=== PATIENT | male | born 1940 | race Caucasian/White ===

== ENCOUNTER 2016-10-17 10:19 | Inpatient (IN) ==
[2016-10-17] MEDS ORDERED: Aspirin 81 MG TAB.CHEW PO ONE (10:27)
[2016-10-17 10:39] LABS: Basophils % 0.6 %; Eosinophils # 0.2 K/mcL (0.0-0.6); Eosinophils % 2.9 %; Hematocrit 41.3 % (37.5-50.1); Hemoglobin 13.5 g/dL (12.9-16.9); Immature Granulocytes % 0.4 % (0-4); Lymphocytes # 1.5 K/mcL (0.6-4.6); Lymphocytes % 22.1 %; Mean Corpuscular HGB Conc 32.7 g/dL (31.6-35.5); Mean Corpuscular Hemoglobin 30.8 pg (28.0-33.3); Mean Corpuscular Volume 94.3 fL (83.0-100.0); Mean Platelet Volume 10.1 fL (9.4-12.4); Monocytes # 0.6 K/mcL (0.0-1.3); Neutrophils # 4.6 K/mcL (1.6-8.9); Platelet Count 161 K/mcL (140-400); Red Blood Count 4.38 M/mcL (4.19-5.50)
[2016-10-17 10:46] LABS: INR 1.4
[2016-10-17] MEDS: Nitroglycerin 25 MG/250 ML INFUS..BTL IVC SCH (10:49)
--- NOTE | 2016-10-17 10:49 | Emergency Department Note ---
Disposition Clinical Impression: Peripheral edema Atrial flutter Qualifiers: Atrial flutter type: typical Qualified Code(s): I48.3 - Typical atrial flutter Dyspnea Qualifiers: Dyspnea type: dyspnea on exertion Qualified Code(s): R06.09 - Other forms of dyspnea Pulmonary edema Qualifiers: Chronicity: acute Qualified Code(s): J81.0 - Acute pulmonary edema Disposition: Admitted As Inpatient Condition: Fair Forms: ED Satisfaction Letter Time of Disposition: 11:36 Chest Pain HPI - General Chief Complaint: ED Chest Pain Stated Complaint: C/P Time Seen by Provider: 10/17/16 10:26 Source: patient Mode of arrival: ambulatory Limitations: no limitations Vital Signs Reviewed: Yes Nursing Notes Reviewed: Yes - History of Present Illness HPI Narrative: Patient presents to emergency room with complaint of chest pain for 3-4 weeks. Patient has history of stable angina. He uses nitroglycerin home. Presents today because now he is having much more difficulty with ambulation and conversational dyspnea. was concerned and wanted him evaluated. Denies fevers chills nausea vomiting diarrhea denies headache vision changes. Main complaint at presentation has persistent chest pain shortness of breath Pt complaint: chest pain Onset (ago): day(s) Duration: constant Onset: during rest Pain Location: substernal Severity: moderate Severity scale (1-10): 8 Quality: aching, heaviness, similar to prior [place] Pain Radiation: none Improves with: nitroglycerin Worsens with: exertion, inspiration Associated symptoms: Reports: dyspnea, palpitations, cough, leg swelling Treatments prior to arrival chest pain: nitroglycerin, oxygen - Related Data Home Medications Medication Instructions Recorded Confirmed Atorvastatin Calcium [Lipitor] 80 mg PO HS 11/30/15 11/30/15 Clopidogrel [Plavix] 75 mg PO DAILY 11/30/15 11/30/15 Diltiazem HCl [Diltiazem 24Hr Cd] 240 mg PO DAILY 11/30/15 11/30/15 Ezetimibe [Zetia] 10 mg PO HS 11/30/15 11/30/15 Oxybutynin [Ditropan] 5 mg PO DAILY 11/30/15 11/30/15 Roflumilast [Daliresp] 500 mcg PO DAILY 11/30/15 11/30/15 Allergies Allergy/AdvReac Type Severity Reaction Status Date / Time No Known Allergies Allergy Verified 11/30/15 10:32 All systems ED: reviewed and negative except as stated. Constitutional: Denies: fever, chills Cardiovascular: Reports: chest pain, palpitations, dyspnea on exertion, orthopnea, edema Respiratory: Reports: cough, dyspnea, sputum production. Denies: wheezes, hemoptysis, stridor Gastrointestinal: Denies: nausea, vomiting, diarrhea, constipation Genitourinary: Denies: dysuria, frequency, hematuria Musculoskeletal: Denies: back pain, neck pain Chest Pain PMH - Past Medical History Medical history: Reports: arthritis, cancer, COPD, coronary artery disease, hyperlipidemia, hypertension Surgical history: Reports: coronary bypass (CABG) Psychiatric history: Reports: no psych history - Social History Smoking Status: Former smoker Alcohol use: Reports: none Drug use: Reports: none Physical Exam - General Limitations: no limitations General appearance: alert - Neck Neck exam: Present: normal inspection, full ROM - Chest Chest inspection: Present: normal inspection, symmetric chest wall rise. Absent : tenderness - Respiratory Respiratory exam: Present: respiratory distress, accessory muscle use. Absent: normal lung sounds bilaterally, wheezes, stridor - Cardiovascular Cardiovascular exam: Present: normal rhythm, tachycardia, normal heart sounds. Absent: irregular rhythm - Abdominal Exam Abdominal exam: Present: soft, Non-Tender, normal bowel sounds. Absent: tenderness, distention, guarding, rebound, rigidity, Lama's sign, Rovsing's sign, tenderness at McBurney's Point - Extremities Exam Extremities exam: Present: normal inspection, full ROM, pedal edema (Bilateral pitting edema to the knee). Absent: tenderness - Back Exam Back exam: Present: normal inspection, full ROM. Absent: tenderness, CVA tenderness (R), CVA tenderness (L) - Neurological Exam Neurological exam: Present: alert, oriented X3, CN II-XII intact, normal gait - Skin Skin exam: Present: warm, dry, intact, normal color Course Course Narrative: Patient seen and examined the time of arrival to the emergency room by personal vehicle. 76-year-old male presents today for 3-4 weeks worth of chest discomfort pain and increase shortness of breath. Has a history of cardiac related disease and multiple stenting's in the past. The most recent was one year ago when he catheterization performed. He has had persistently worsening exertional dyspnea to the point today where he is actually have conversational dyspnea. He does use oxygen at night at home for chronic lung related issues. Of note he is been finding or seeing bilateral lower extremity swelling in the legs. Patient denies any other changes in medication or recent trauma no recent illnesses. Currently denying fevers chills nausea vomiting diarrhea headache or vision change. Main complaint on presentation his chest discomfort and shortness of breath. Physical exam shows a well-appearing 76-year-old male that does appear to be in some respiratory distress. Vital signs are reviewed and he was hypoxic at 90% on room air on arrival after walking into the ER. He was to Make and 26 respirations per minute range. Heart rate is been stable at 110-120 but is concerning secondary to his presentation symptoms. EKG was taken in triage and does show worries read as a flutter even though it does look like sinus rhythm at this time. Patient was taking nitroglycerin tablets at home with resolution of his chest discomfort and some of the breathing related symptoms. Lungs on physical exam are significantly diminished in the left lower lobe of the lung. Right-sided lungs appear to aerate appropriately. Heart rate is tachycardic with possible mild systolic murmur. Abdomen is soft nontender nondistended no pulsatile regions or lesions. No hernias noted no guarding no rigidity. Patient moves all 4 extremities with purpose he has bilateral pitting edema at +[address] up to the knee. Based on symptoms history and presentation patient is concerning for cardiac related source, pulmonary edema, congestive heart failure, pulmonary emboli. He is currently on Plavix. EKG troponin chest x-ray BiPAP Lasix CBC chemistry Bnp. We will continue to monitor here in the emergency room. Initial immediate intervention will be provided including Lasix to treat what appears to be pulmonary congestion and cardiac source. Patient does not take aspirin and has been taking his Lasix. Disposition pending this workup and treatment course. - Reevaluation(s) Reevaluation #1: Patient found to have elevated troponin at 0.14. Chest x-ray reviewed showing left-sided what appears to be pulmonary edema effusion and right-sided pulmonary edema. Mediastinum was compared to a chest x-ray and 2012 and appears to be normal presentation in width. Patient is on Plavix currently. Will discuss with the retort setter on-call for the recommendations of either starting anticoagulation and treatment of what appears to be sinus tachycardia/ A. fib flutter. Patient is concerning for fluid overload. Nitroglycerin drip started at 5 mcg/h blood pressure is been stable and his chest pain is gone and noticed a slight pressure. BiPAP to be applied as needed. Pulse ox is maintained at 96% on 1 L of oxygen. First dose of IV Lasix given. Otherwise no other acute findings on this evaluation. Treatment course to be completed. Cardiology consult pending. Cardizem drip and heparin be started. Chest pain is down to 1 at this time after nitro drip. We will control her heart rate at this time with the Cardizem purchasing internship off the nitroglycerin as a Cardizem drip is started. We will then adjust for blood pressure at that time. Patient is resting in the bed at this time heart rate is still 120 but his breathing and presentation appear to be more stable at this time. Admission process to be completed at this point CT angios of the chest is pending Time: 11:25 Reevaluation #2: CT angiogram of the chest confirmed bilateral pleural effusions with no signs of pulmonary emboli. Mild atelectasis noted. Symptoms appear to be consistent with congestive heart failure pulmonary edema. Symptoms of in getting better with treatment here in the emergency room. Hospital space at this time for admission process to be completed Hospitalist Dr. weaver and I reviewed the patient's presentation symptoms cardiac consultation as well as the medical interventions performed on in the emergency room. They currently have no other recommendations at this time. They are happy to treat the patient in the hospital. BiPAP was placed here in the emergency room secondary to increased work of breathing after the patient was moved from the bed to a wheelchair while going over to CT. This is most likely secondary to the pleural effusion movement. Patient otherwise had stable vital signs. Tolerating BiPAP without any issue. He will be admitted to the hospital for definitive management of what appears to be pulmonary edema , congestive heart failure, fluid overload causing atrial flutter and an elevated troponin. Patient is otherwise stable resting in the bed at this time Time: 12:40 - Consultations Consultation #1: dr. Hood and I reviewed the pt presentation and symptoms. recommended that we start heparin and cardizem if applicable and they will see in consult. aware of the elevated trop and ekg issues. Vital Signs Temperature 98 F 10/17/16 10:20 Pulse Rate 97 10/17/16 10:20 Respiratory Rate 20 10/17/16 10:20 Blood Pressure 128/70 10/17/16 10:20 O2 Sat by Pulse Oximetry 98 10/17/16 10:20 Temperature 98 F 10/17/16 10:20 Pulse Rate 97 10/17/16 10:20 Respiratory Rate 20 10/17/16 10:20 Blood Pressure 128/70 10/17/16 10:20 O2 Sat by Pulse Oximetry 98 10/17/16 10:20 Oxygen Delivery Oxygen Delivery Room Air Chest Pain - MDM Narrative Medical decision making narrative: Chest pain, pulmonary edema, hypoxia, tachycardia, elevated troponin, congestive heart failure - Medical Records Medical records reviewed: Yes I reviewed the patient's medical records. - Lab Data Lab results reviewed: Yes I reviewed the patient's lab results. Result diagrams: 10/17/16 10:31 Lab Results 10/17/16 Range/Units 10:31 WBC 7.0 (4.3-11.1) K/mcL RBC 4.38 (4.19-5.50) M/mcL Hgb 13.5 (12.9-16.9) g/dL Hct 41.3 (37.5-50.1) % MCV 94.3 (83.0-100.0) fL MCH 30.8 (28.0-33.3) pg MCHC 32.7 (31.6-35.5) g/dL RDW 13.0 (11.5-14.5) % Plt Count 161 (140-400) K/mcL MPV 10.1 (9.4-12.4) fL Immature Gran % 0.4 (0-4) % Seg Neutrophils % 66.0 % Lymphocytes % 22.1 % Monocytes % 8.0 % Eosinophils % 2.9 % Basophils % 0.6 % Neutrophils # 4.6 (1.6-8.9) K/mcL Lymphocytes # 1.5 (0.6-4.6) K/mcL Monocytes # 0.6 (0.0-1.3) K/mcL Eosinophils # 0.2 (0.0-0.6) K/mcL Basophils # 0.0 (0.0-0.2) K/mcL - Radiology Data Radiology results reviewed: Yes I reviewed the patient's radiology results. Chest x-ray reviewed by myself confirmed by the radiologist. Mediastinum appears to be stable. Left side of the lung appears to have pulmonary effusion/ edema. Right side has cephalization consistent with pulmonary edema. - EKG Data EKG attestation: Yes I reviewed and interpreted this EKG. EKG shows normal: sinus rhythm, axis, intervals, QRS complexes, ST-T waves Rate: tachycardia [place]/QRS: normal When compared to previous EKG there are: changes noted Interpretation: other Heart Score - Score History: Moderately Suspicious EKG: Non Specific repolarisation Disturbance Age: Greater than 65 Risk Factors: Equal/Greater than 3 risk factor or history of atherosclerotic disease Troponin: Greater than 3x normal limit HEART Score Total: 8 Critical Care Time Critical Care Time: Yes Total Critical Care Time: 35 Attestation: Independent of medical management patient disposition. Patient was placed on nitro drip secondary to cardiac symptoms and history of flash pulmonary edema. Consultations with the cardiology hospitalist
[2016-10-17 10:51] LABS: BUN/Creatinine Ratio 19 (6-26); Blood Urea Nitrogen 19 mg/dL (8-26); Calcium 9.5 mg/dL (8.6-10.8); Carbon Dioxide 21 mEq/L (19-29); Chloride 111 mEq/L (98-109); Glucose 106 mg/dL (70-99); Osmolality,Calculated 293 (280-300); Potassium 4.3 mEq/L (3.5-4.5); Sodium 140 mEq/L (136-145); eGFR For African Americans > 60 (> 60); eGFR For Non-African Americans > 60 (> 60)
[2016-10-17] MEDS ORDERED: Furosemide 80 MG in 0.9 % Sodium Chloride 50 ML IVPB ONE (10:57)
[2016-10-17] MEDS ORDERED: *HR* Heparin 5,000 UNIT/ML VIAL IVP PRN ×2 (11:32)
[2016-10-17] MEDS ORDERED: *HR* Heparin 5,000 UNIT/ML VIAL IVP ONE (11:32)
[2016-10-17] MEDS: Heparin 25,000 UNIT/500 ML D5W 25,000 UNIT/500 ML MLS IVC SCH (12:45)
[2016-10-17] MEDS ORDERED: *HR* Morphine 2 MG/ML SYRINGE IVP PRN (15:12)
[2016-10-17] MEDS ORDERED: Naloxone 0.4 MG/ML INJ IVP PRN (15:12)
[2016-10-17] MEDS ORDERED: *HR* HYDROcodone/Acet 5/325 mg TABLET PO PRN (15:12)
[2016-10-17] MEDS ORDERED: Acetaminophen 325 MG TABLET PO PRN (15:12)
[2016-10-17] MEDS ORDERED: Heparin 25,000 UNIT/500 ML D5W 25,000 UNIT/500 ML MLS IVC SCH (15:30)
[2016-10-17] MEDS ORDERED: Nitroglycerin 0.4 MG TAB.SUBL SL PRN (15:34)
--- NOTE | 2016-10-17 15:40 | Internal Med History&Physical ---
<Tom Rivas - Last Filed: 10/17/16 17:48> Date of Encounter: 10/17/16 Time of Encounter: 14:30 Assessment and Plan (1) Acute on chronic respiratory failure Current visit: Yes Status: Acute Assess: Patient presents with new onset acute on chronic respiratory failure. Plan: Initiate BiPap in ED with continuation of therapy after admission Continuous SpO2 monitoring Xopenex IH ordered every 6 Continue patient's Qvar Monitor patient and vital signs Falls precautions [id number] only Bed rest with bedside commode with assist Qualifiers: Respiratory failure complication: hypoxia Qualified Code(s): J96.21 - Acute and chronic respiratory failure with hypoxia (2) Acute systolic congestive heart failure Current visit: Yes Status: Acute Assess: Patient presents with acute systolic congestive heart failure. Patient has history of CAD and CABG. Vision currently has bilateral pedal edema which is nonpitting. Plan: IVP Lasix 80 mg administered in ED Continue IVP Lasix 40 mg BID Continuous cardiac telemetry Continue BiPap Fluid restriction diet of 1.5 L daily (3) Atrial flutter with rapid ventricular response Current visit: Yes Status: Acute Assess: Patient presents with new onset of atrial flutter/tachycardia with rapid ventricular response. Plan: Heparin drip initiated in ED. Will continue as inpatient Cardizem drip initiated in ED. Will continue as inpatient Aspirin 324 mg initiated knee-deep Cardiology consult ordered and placed in ED Continuous cardiac telemetry Continue patient's Plavix EV echocardiogram ordered Troponins trended 2 Monitor patient and vitals (4) COPD (chronic obstructive pulmonary disease) Current visit: Yes Status: Chronic Assess: Patient presents with acute exacerbation of chronic obstructive pulmonary disease. Plan: Continue BiPap Xopenex IH ordered Q6 Continuous SPO2 monitoring Continue patient's home Qvar Qualifiers: COPD type: COPD with acute exacerbation Qualified Code(s): J44.1 - Chronic obstructive pulmonary disease with (acute) exacerbation (5) HLD (hyperlipidemia) Current visit: Yes Status: Chronic Assess: Patient presents with history of chronic hyperlipidemia. Plan: Lipid panel ordered Consider adding Lipitor based on the panel results Qualifiers: Hyperlipidemia type: unspecified Qualified Code(s): E78.5 - Hyperlipidemia , unspecified (6) DVT prophylaxis Current visit: Yes Status: Acute Assess: Patient placed on DVT prophylaxis due to admission protocol as well as bedrest status and current atrial flutter diagnosis. Plan: Continue Heparin drip Internal Medicine - H&P: HPI Chief complaint: SOB/Chest pressure Admitted From: Emergency Dept Plans for Post Hospital Care: Home History of present illness: Mr. Velazquez is a 76 year old male presents from the ED with chief complaint of SOB and chest pressure for the past 3-4 weeks which has become progressively worse. Patient uses nitroglycerin for stable angina at home which he reports helps. He states that he is now SOB with and without exertion and can only take several steps. He states that his chest discomfort is more pressure than pain and does not radiate. Upon arrival at the ED, patient was found to be experiencing a new onset of atrial flutter. He denies recent illness, fever, chills, nausea, vomiting, diarrhea, headache, generalized weakness, or vision changes. Patient's HR in ED was in the 120's. Cardizem drip and Heparin drips initiated in the ED with 80 mg IVP of Lasix for bilateral edema in lower extremities. 25 mg nitroglycerin drip was also started in ED as well as administration of 324 mg aspirin. Patient has history of bladder cancer which he reports is in remission with his last maintenance dose administered on . Patient also has history of COPD, CAD, hyperlipidemia, hypertension, coronary bypass in 1987 (triple) and placement of 5 stents. Patient is high risk for cardiac decline based on current atrial flutter and history of CAD and will replace his inpatient continuation of Cardizem drip, heparin drip, cardiology consult, continuous cardiac telemetry, supplemental O2 via BiPAP, troponin trending 2, IVP Lasix 40 mg twice a day, monitoring of I&O, EV echocardiogram, ABGs, follow-up APTT and INR, as well as fluid restriction diet of 1.5 L daily. Patient to be monitored closely. Time spent with patient greater than 40 minutes. Past Med Surg Social Fam HX - Past Medical History Source: patient Medical history: arthritis, cancer, COPD, coronary artery disease, hyperlipidemia, hypertension Psychiatric history: no psych history - Past Surgical History Surgical History: coronary bypass (CABG), orthopedic, other (Back/disc surgery) - Social History Smoking Status: Former smoker Packs per day: 1 PPD - reports quitting 28 years ago Smokeless Tobacco Status: No Alcohol use: none Drug use: none Occupational status: retired Current living situation: Home, With Family Activity Level: Independent ambulation Recent Out of Country Travel Within the Last 8 Weeks: No Exposure or Possible Exposure to Illness During Travel: No - Family History Father Race: Family Member Ethnicity: Non- Living Status: Age at : 89 Cause of : Complications from broken hip Mother Race: Family Member Ethnicity: Non- Living Status: Age at : 91 Cause of : "Old age" Brother Race: Family Member Ethnicity: Non- Living Status: Age at : 47 Cause of : Cancer - Type unknown Hx Family Cardiac Disorders: Yes Sister Race: Family Member Ethnicity: Non- Living Status: Still Living Hx Family Medical Disorders: No Internal Medicine - H&P: Meds Atorvastatin Calcium [Lipitor] 80 mg PO HS 11/30/15 [History] Clopidogrel [Plavix] 75 mg PO DAILY 11/30/15 [History] Diltiazem HCl [Diltiazem 24Hr Cd] 240 mg PO DAILY 11/30/15 [History] Ezetimibe [Zetia] 10 mg PO HS 11/30/15 [History] Oxybutynin [Ditropan] 5 mg PO DAILY 11/30/15 [History] Roflumilast [Daliresp] 500 mcg PO DAILY 11/30/15 [History] Ascorbate Calcium [Vitamin C] 500 mg PO DAILY 10/17/16 [History] Beclomethasone Diprop 80mcg [Qvar 80 mcg] 2 puff IH BID 10/17/16 [History] Multivitamin [Multi-Day Vitamins] 1 tab PO DAILY 10/17/16 [History] Nitroglycerin [Nitrostat] 0.4 mg SL AD PRN 10/17/16 [History] Oxygen 2 l NS HS 10/17/16 [History] Umeclidinium Brm/Vilanterol Tr [Anoro Ellipta 62.5-25 Mcg INH] 1 puff IH DAILY 10/17/16 [History] Vitamin A 10,000 unit PO DAILY 10/17/16 [History] Vitamin E 100 unit PO DAILY 10/17/16 [History] Allergies No Known Allergies Allergy (Verified 11/30/15 10:32) All Systems PM: A 10-system review of systems was performed and is negative for pertinent findings except as documented above in the HPI. - Constitutional Constitutional: no chills, no fever(s), no night sweats - EENT Eyes: no change in vision, no discharge, no pain, no photophobia Ears: no ear discharge, no ear pain, no tinnitus Nose, mouth and throat: no dysphagia, no nasal discharge, no neck pain, no sore throat - Breasts Breasts: as per HPI - Cardiovascular Cardiovascular ROS IM: as per HPI, chest pain (Describes chest discomfort as pressure), dyspnea, dyspnea on exertion, edema (Bilateral nonpitting), irregular heart rhythm - Respiratory Respiratory: as per HPI, dyspnea, dyspnea on exertion, wheezing - Gastrointestinal Gastrointestinal: no abdominal pain, no diarrhea, no hematemesis, no hematochezia, no melena, no nausea, no vomiting - Genitourinary Genitourinary ROS male: as per HPI, urinary urgency (Due to Lasix) - Musculoskeletal Musculoskeletal ROS IM: no numbness, no tingling - Integumentary Integumentary IM: no rash, no unusual bruising - Neurological Neurological ROS: no confusion, no convulsions, no focal weakness, no numbness, no tingling, no tremor(s) - Psychiatric Psychiatric: as per HPI - Endocrine Endocrine IM: as per HPI - Hematologic/Lymphatic Hematologic/Lymphatic: no easy bruising - Allergic/Immunologic Allergic/Immunologic: as per HPI - Constitutional Vitals: Temp Pulse Resp BP Pulse Ox 98 F 124 30 122/93 98 10/17/16 10:20 10/17/16 14:00 10/17/16 14:40 10/17/16 14:40 10/17/16 14:00 General appearance: Present: cooperative, A&O X 3, pleasant, obese, severe distress (Respiratory distress requiring BiPap), answers questions appropriately - Head Head exam: Present: atraumatic, normocephalic - Eye Eye exam: Present: PERRL, conjuntiva pink, sclera anicteric Pupils: Present: PERRL - ENT ENT exam: Present: normal exam, normal external ear exam - Neck Neck exam general surgery: Present: normal inspection, supple, trachea midline. Absent: lymphadenopathy - Respiratory Respiratory exam: Present: decreased breath sounds, respiratory distress, wheezes (Bilaterally all lobes) - Cardiovascular Cardiovascular exam: Present: irregular rhythm, tachycardia - GI/Abdominal GI/Abdominal exam: Present: normal bowel sounds, soft, no peritoneal signs. Absent: distended, tenderness - Rectal Rectal exam: Present: deferred - Additional comments: exam deferred. - Extremities Exam Extremities exam: Present: pedal edema (Non-pitting bilaterally), warm, radial pulses palpable and symetrical. Absent: calf tenderness, cyanotic - Back Exam Back exam: Present: normal inspection - Neurological Exam Neurological exam: Present: CN II-XII intact, oriented X3, no focal deficits. Absent: pronater drift, facial droop, speech deficit - Psychiatric Psychiatric exam: Present: normal affect, normal mood - Skin Skin exam: Present: dry, intact Internal Med - H&P Results - Labs CBC & Chem 7: 10/17/16 17:14 10/17/16 10:31 - EKG Data Prior EKG available for review: yes When compared to previous EKG: there are significant changes EKG comments: 10/17/16 16:00 EKG dated 09/24/13 shows sinus bradycardia with possible inferior infarction, age undetermined. T-wave changes in lateral leads. Appearances provide additional evidence of myocardial ischemia. EKG dated 10/17/16 shows atrial flutter/tachycardia with rapid ventricular response, possible anterior myocardial infarction (probably old). - Diagnostic Studies Chest x-ray Additional comments: Impressions Chest X-Ray 10/17/16 10:27 IMPRESSION: Findings are most suggestive of mild congestive heart failure. D/ / Jimena Cassidy MD / Jimena Cassidy MD Interpreting Provider: Jimena Cassidy MD CT scan - chest Additional comments: Impressions Chest CTA 10/17/16 10:38 IMPRESSION: 1. Examination is negative for acute pulmonary embolism 2. Bilateral pleural effusions, right greater than left with bibasilar atelectatic changes. D/ / Yordan Giraldo MD / Yordan Giraldo MD Interpreting Provider: Yordan Giraldo MD <Rene Cobian - Last Filed: 10/17/16 18:49> Date of Encounter: 10/17/16 Time of Encounter: 17:15 Internal Medicine - H&P: HPI History of present illness: Mr. Velazquez is a 76 year old male All Systems PM: A 10-system review of systems was performed and is negative for pertinent findings except as documented above in the HPI. - Constitutional Vitals: Temp Pulse Resp BP Pulse Ox 97.8 F 122 18 123/93 96 10/17/16 15:49 10/17/16 16:45 10/17/16 16:55 10/17/16 16:45 10/17/16 16:55 Internal Med - H&P Results - Labs CBC & Chem 7: 10/17/16 17:14 10/17/16 10:31 Labs: Short CBC 10/17/16 Range/Units 17:14 WBC 7.5 (4.3-11.1) K/mcL Hgb 13.6 (12.9-16.9) g/dL Hct 40.8 (37.5-50.1) % Plt Count 168 (140-400) K/mcL Cardiac Enzymes 10/17/16 Range/Units 17:14 Troponin I 0.15 H* (0-0.03) ng/mL - Attending Attestation I examined this patient and my medical decision-making was reviewed with the nurse practitioner. I agree with the documented history of present illness, review of systems, past medical, surgical social and family histories and examination findings, disposition and treatment plan as described above except to any changes set forth below. 76-year-old male patient with history of coronary artery disease status post CABG, COPD, hyperlipidemia, hypertension presented to the ER with complaints of shortness of breath and chest pressure. His symptoms have been going on for the past 3-4 weeks but progressively getting worse. He has a history of chronic stable angina for which he uses nitroglycerin as needed. He was also having palpitations on presentation. In the year noted to be in a flutter with rapid ventricular response. He was started on Cardizem and also on heparin for anticoagulation. On examination, patient is tachycardic and regular rhythm, S1 and S2 are normal. Respiratory exam shows bilateral end expiratory wheezing. On initial presentation to the ER, patient was very hypoxic and required BiPAP. This is now improved after he received IV Lasix in the ER. Acute on chronic respiratory failure with hypoxia: Due to acute CHF with underlying COPD. Will treat with IV Lasix and O2 supplementation. Monitor vital signs closely. High risk for complications. Acute systolic congestive heart failure: We will treat with IV Lasix. Check 2- D echocardiogram. Cardiology has been consulted. We will follow recommendations. Atrial flutter: Continue Cardizem drip and heparin drip. Cardiology recommendations. COPD exacerbation: Patient is also wheezing bilaterally and hypoxic. We will treat with Xopenex nebs. O2 supplementation. Continue Qvar. IV steroids. Chest pain with mild troponin elevation: Likely related to hypoxia and demand ischemia. Trend troponins. 2-D echocardiogram. Cardiology consult
[2016-10-17] MEDS: Levalbuterol Neb 1.25 MG/3 ML IH SCH ×2 (16:55→20:30)
[2016-10-17 17:23] LABS: Hematocrit 40.8 % (37.5-50.1); Hemoglobin 13.6 g/dL (12.9-16.9); Mean Corpuscular HGB Conc 33.3 g/dL (31.6-35.5); Mean Corpuscular Hemoglobin 31.2 pg (28.0-33.3); Mean Corpuscular Volume 93.6 fL (83.0-100.0); Mean Platelet Volume 10.2 fL (9.4-12.4); Platelet Count 168 K/mcL (140-400); Red Blood Count 4.36 M/mcL (4.19-5.50)
[2016-10-17 17:37] LABS: INR 1.4; Prothrombin Time 14.8 Seconds (9.4-12.1)
[2016-10-17 17:41] LABS: Activated Partial Thrombo Time 72.6 Seconds (26.0-36.0)
[2016-10-17] MEDS: Beclomethasone 80mcg MDI IH SCH (20:30)
[2016-10-18 04:26] LABS: Basophils % 0.6 %; Eosinophils # 0.2 K/mcL (0.0-0.6); Eosinophils % 3.6 %; Hematocrit 38.9 % (37.5-50.1); Immature Granulocytes % 0.6 % (0-4); Lymphocytes # 1.6 K/mcL (0.6-4.6); Lymphocytes % 24.5 %; Mean Corpuscular HGB Conc 33.4 g/dL (31.6-35.5); Mean Corpuscular Hemoglobin 31.5 pg (28.0-33.3); Mean Corpuscular Volume 94.2 fL (83.0-100.0); Mean Platelet Volume 10.8 fL (9.4-12.4); Monocytes # 0.6 K/mcL (0.0-1.3); Monocytes % 9.2 %; Neutrophils # 4.1 K/mcL (1.6-8.9); Platelet Count 164 K/mcL (140-400); Red Blood Count 4.13 M/mcL (4.19-5.50); Segmented Neutrophils % 61.5 %
[2016-10-18] MEDS: Levalbuterol Neb 1.25 MG/3 ML IH SCH ×2 (04:26→09:28)
[2016-10-18 04:55] LABS: Alanine Aminotransferase 41 Units/L (0-55); Albumin 3.4 g/dL (3.5-5.0); Albumin/Globulin Ratio 1.1 (1.1-2.2); Alkaline Phosphatase 87 Units/L (38-126); Aspartate Amino Transferase 32 Units/L (5-34); BUN/Creatinine Ratio 17 (6-26); Bilirubin,Total 1.4 mg/dL (0.2-1.2); Blood Urea Nitrogen 16 mg/dL (8-26); Calcium 8.9 mg/dL (8.6-10.8); Carbon Dioxide 22 mEq/L (19-29); Chloride 108 mEq/L (98-109); Cholesterol 131 mg/dL (< 200); Glucose 98 mg/dL (70-99); HDL Cholesterol 43 mg/dL (40-59); LDL Cholesterol,Calculated 77 mg/dL (0-99); Magnesium 1.7 mg/dL (1.6-2.6); Osmolality,Calculated 293 (280-300); Potassium 3.5 mEq/L (3.5-4.5); Sodium 141 mEq/L (136-145); Total Protein 6.4 g/dL (6.0-8.3); Triglycerides 55 mg/dL (< 150); eGFR For African Americans > 60 (> 60); eGFR For Non-African Americans > 60 (> 60)
[2016-10-18] MEDS: Multivit/Ca/Min/Fe/FA 1 TAB TABLET PO SCH (07:58)
[2016-10-18] MEDS: Pantoprazole 40 MG VIAL IVP SCH (07:58)
[2016-10-18] MEDS: Ascorbic Acid 500 MG TABLET PO SCH (07:58)
[2016-10-18] MEDS ORDERED: VITAMIN E 100 UNITS PO SCH (09:00)
[2016-10-18] MEDS ORDERED: VITAMIN A 10000 UNIT PO SCH (09:00)
[2016-10-18] MEDS: Beclomethasone 80mcg MDI IH SCH ×2 (09:28→20:57)
[2016-10-18] MEDS: Nitroglycerin 25 MG/250 ML INFUS..BTL IVC SCH (11:52)
--- NOTE | 2016-10-18 11:54 | Electrocardiograph Report ---
[place] [id number] Test Date: 2016-10-17 Pat Name: Hansel Velazquez Department: 103 Room: 2N15 Gender: M [employer] Supervisor: : [id number] Requested By: Abimael Hernandez Order Number: [id number] Reading MD: Bebo Barton MD Measurements Intervals [place] Rate: 122 P: OK: 0 QRS: -16 QRSD: 116 T: 120 QT: 309 QTc: 381 Interpretive Statements ATRIAL FLUTTER/TACHYCARDIA WITH RAPID VENTRICULAR RESPONSE Poor R wave progression Electronically Signed On 10-18-2016 11:52:42 EDT by Bebo Barton MD
--- NOTE | 2016-10-18 13:28 | Cardiology Consult Note ---
<Karla Chowdhury - Last Filed: 10/18/16 14:50> Date of Encounter: 10/18/16 Time of Encounter: 08:00 Assessment and Plan (1) Atrial flutter with rapid ventricular response Current Visit: Yes Status: Acute Per cardiology: -New onset atrial flutter with RVR. -Was on cardizem drip. -ECG with a.flutter, HR 122. -Telemetry reviewed with average HR previous 12 hours noted to be 98, atrial flutter. -On heparin drip. -Echo 10/18/16 with LVEF 35-40%, mildly dilated left atrium, restricted motion of posterior mitral valve leaflet, severe mitral regurgitation, mid inferior, basal inferior, mid anterior lateral, basal anterior lateral, mid inferior lateral, and basal inferior lateral brooks hypokinetic. -[id number] score 5 (age, HTN, CHF, vascular disease). Currently on heparin drip. Due to severe MR, patient will need coumadin for meterman anticoagulation. I spoke at length with patient and regarding increased risk of stroke if not on anticoagulation and need for coumadin due to valvular heart disease. Patient agreeable for coumadin. -Cardizem was stopped due to cardiomyopathy. -Beta cynthia was started. -Will start coumadin. Will stop heparin. -Will continue to monitor. (2) Acute systolic congestive heart failure, NYHA class 2 Current Visit: Yes Status: Acute Per cardiology: -Echo as above with LVEF 35-40%. -Previous echo with EF 55%. -Pitting edema noted. -On lasix IV BID. -Net negative 754ml this admission. -Chest CT with bilateral pleural effusions right greater than left. -Of note, current weight 211.9 pounds, per office records weight 05/2016 225 pounds. -BNP 381 -Agree with strict i/os, daily weights, and fluid restriction. -CHF education given to patient and family. -Will continue to monitor. -Agree with continuation of lasix. (3) Severe mitral regurgitation Current Visit: Yes Status: Acute Per cardiology: -Severe MR per echocardiogram. -Patient with increased shortness of breath and edema. -Will continue to monitor. (4) CAD (coronary artery disease) Current Visit: Yes Status: Chronic Per cardiology: -Known CAD with CABG x3 1997. -[facility] 8/3/16 with 100% stenosis proximal LAD, 100% OM1, 100% proximal RCA, collaterals from LAD, CARD to LAD, SVG to OM occluded, and SVG to PDA occluded. Cath films reviewed with , who states lesions are not ammendable to PCI. -Patient has chronic chest pain. -Reports increased chest pain with atrial flutter with RVR. -Denies current chest pain. -ON plavix, statin, beta cynthia. Patient refuses to take ASA due to increased bruising. -ECG with no ischemic changes. -Echo as above. -Will continue to monitor. Qualifiers: Coronary Disease-Associated Artery/Lesion type: unspecified vessel or lesion type [place] vs. transplanted heart: unspecified whether [place] or transplanted heart Associated angina: without angina Qualified Code(s): I25.10 - Atherosclerotic heart disease of [place] coronary artery without angina pectoris (5) Elevated troponin Current Visit: Yes Status: Acute Per cardiology: -ELevated troponin 0.14, 0.15, 0.15. -Troponins flat and adynamic in the setting of atrial flutter with RVR. -Denies current chest pain. -Echo as above. -Known CAD, not ammednable to PCI. -Do not suspect NSTEMI, suspect demand ischemia related to atrial flutter with RVR. No cardiac rehab warranted at this time. (6) Cardiomyopathy Current Visit: Yes Status: Acute Per cardiology: -New cardiomyopathy with LVEF 35-40%, previous 55%. -Echo as above. -On lasix. -beta cynthia and wilton inhibitor started. -recommend repeating echoacrdiogram in 3 months. Qualifiers: Cardiomyopathy type: unspecified Qualified Code(s): I42.9 - Cardiomyopathy , unspecified Discussion w patient/family: The assessment and plan as outlined above was discussed with the patient and/or family members who expressed understanding and agreement. All questions were answered. Thank you for involving us in the care of your patient. Please call with any questions. Discussed and reviewed with . History of Present Illness Consult date: 10/17/16 Requesting physician: Abimael Hernandez Consult reason: atrial flutter Chief complaint: Chest pain/shortness of breath History of present illness: Mr. Velazquez is a 76 year old male with a relevant past medical history of HTN, hyperlipidemia, CAD s/p CABG x3 1997, COPD, skin CA, bladder cancer. Patient states over the past couple of weeks he has had worsening shortness of breath and chest pain. Patient has chronic angina, but states this pain was worse. Patient was admitted to [facility] and noted to be in atrial flutter with RVR. Patient declines history of atrial fibrillation/flutter. Cardiology has been consulted. Patient denies current chest pain, palpitations, or fluttering. Patient denies bleeding or blood loss. Reports has now finished chemotherapy for bladder CA. Past Med Surg Social Fam HX - Past Medical History Attestation: Yes The following information was validated with the patient. Source: patient, old records reviewed, obtained from family Medical history: arthritis, cancer, COPD, coronary artery disease, hyperlipidemia, hypertension Psychiatric history: no psych history - Past Surgical History Surgical History: coronary bypass (CABG), orthopedic, other (Back/disc surgery) - Social History Smoking Status: Former smoker Packs per day: 1 PPD - reports quitting 28 years ago Smokeless Tobacco Status: No Alcohol use: none Drug use: none - Family History Father Race: Family Member Ethnicity: Non- Living Status: Age at : 89 Cause of : Complications from broken hip Mother Race: Family Member Ethnicity: Non- Living Status: Age at : 91 Cause of : "Old age" Brother Race: Family Member Ethnicity: Non- Living Status: Age at : 47 Cause of : Cancer - Type unknown Hx Family Cardiac Disorders: Yes Sister Race: Family Member Ethnicity: Non- Living Status: Still Living Hx Family Medical Disorders: No Medications and Allergies Atorvastatin Calcium [Lipitor] 80 mg PO HS 11/30/15 [History] Clopidogrel [Plavix] 75 mg PO DAILY 11/30/15 [History] Diltiazem HCl [Diltiazem 24Hr Cd] 240 mg PO DAILY 11/30/15 [History] Ezetimibe [Zetia] 10 mg PO HS 11/30/15 [History] Oxybutynin [Ditropan] 5 mg PO DAILY 11/30/15 [History] Roflumilast [Daliresp] 500 mcg PO DAILY 11/30/15 [History] Ascorbate Calcium [Vitamin C] 500 mg PO DAILY 10/17/16 [History] Beclomethasone Diprop 80mcg [Qvar 80 mcg] 2 puff IH BID 10/17/16 [History] Multivitamin [Multi-Day Vitamins] 1 tab PO DAILY 10/17/16 [History] Nitroglycerin [Nitrostat] 0.4 mg SL AD PRN 10/17/16 [History] Oxygen 2 l NS HS 10/17/16 [History] Umeclidinium Brm/Vilanterol Tr [Anoro Ellipta 62.5-25 Mcg INH] 1 puff IH DAILY 10/17/16 [History] Vitamin A 10,000 unit PO DAILY 10/17/16 [History] Vitamin E 100 unit PO DAILY 10/17/16 [History] Allergies No Known Allergies Allergy (Verified 11/30/15 10:32) All Systems Review: A 10-system review of systems was performed and is negative for pertinent findings except as documented above in the HPI. - Cardiovascular Cardiovascular: as per HPI, chest pain at rest, dyspnea at rest, dyspnea on exertion Physical Examination Vital Signs, Last 4 Hours Temp Pulse Resp BP Pulse Ox 10/18/16 11:42 102 10/18/16 11:28 97.8 F 114 16 103/72 94 10/18/16 09:31 16 95 General: Conversant, No Apparent Distress HEENT: Atraumatic, Normocephaly, Mucus Membranes Moist Neck: No JVD, Normal carotid pulses Cardiac: Normal S1 and S2, Other (Irregularly, irregular. Systolic murmur noted. ) Lungs: Normal Breath Sounds, No Wheeze, Rales, Rhonchi Neuro: Alert and responsive, No focal deficits noted Abdomen: Soft, Non-Tender Skin: No rashes noted on visualized skin Musculoskeletal: No Chest Wall Tenderness Extremities: No Clubbing, No Cyanosis, Normal Pulses, Other (2+ pitting edema to left lower extremity. 1+ pitting edema to right lower extremity. ) Results 10/18/16 03:24 10/18/16 03:24 Lab Results 10/17/16 10/17/16 10/17/16 17:14 17:14 17:14 WBC 7.5 Hgb 13.6 Hct 40.8 Plt Count 168 INR 1.4 APTT 72.6 H D Sodium Potassium Chloride Carbon Dioxide BUN Creatinine Glucose Calcium Magnesium Total Bilirubin AST ALT Alkaline Phosphatase Troponin I B-Natriuretic Peptide 381 H TSH 06/10/17/16 10/17/16 17:14 21:51 21:51 WBC Hgb Hct Plt Count INR APTT 57.4 H Sodium Potassium Chloride Carbon Dioxide BUN Creatinine Glucose Calcium Magnesium Total Bilirubin AST ALT Alkaline Phosphatase Troponin I 0.15 H* 0.15 H* B-Natriuretic Peptide TSH Impressions Chest CTA 10/17/16 10:38 IMPRESSION: 1. Examination is negative for acute pulmonary embolism 2. Bilateral pleural effusions, right greater than left with bibasilar atelectatic changes. D/ / Yordan Giraldo MD / Yordan Giraldo MD Interpreting Provider: Yordan Giraldo MD Active Medications Acetaminophen (Tylenol) 650 mg PO Q6HR PRN PRN Reason: Mild Pain (1-3) Stop: 04/18/17 15:13 Acetaminophen/Hydrocodone Bitart ([place] 5-325 Mg) 1 tab PO Q4HR PRN PRN Reason: Moderate Pain (4-6) Stop: 04/18/17 15:13 Ascorbic Acid (Vitamin C) 500 mg PO DAILY [facility] Stop: 04/19/17 09:01 Last Admin: 10/18/16 07:58 Dose: 500 mg Atorvastatin Calcium (Lipitor) 80 mg PO HS ROSITA Stop: 04/18/17 21:01 Last Admin: 10/17/16 21:03 Dose: 80 mg Beclomethasone Dipropionate (Qvar 80 Mcg) 2 puff IH BID ROSITA PRN Reason: Protocol Stop: 04/18/17 21:01 Last Admin: 10/18/16 09:28 Dose: 2 puff Clopidogrel Bisulfate (Plavix) 75 mg PO DAILY [facility] Stop: 04/19/17 09:01 Last Admin: 10/18/16 07:58 Dose: 75 mg Furosemide (Lasix) 40 mg IVP BID [facility] Stop: 04/19/17 21:01 Heparin Sodium (Porcine) (Heparin) 4,000 unit IVP Q6HR PRN PRN Reason: SEE COMMENTS Stop: 04/18/17 11:33 Heparin Sodium (Porcine) (Heparin) 2,000 unit IVP Q6H PRN PRN Reason: SEE COMMENTS Stop: 04/18/17 11:33 Last Admin: 10/18/16 06:46 Dose: 2,000 unit Nitroglycerin (Nitroglycerin) 25 mg in 250 mls @ 3 mls/hr IVC .Q24H ROSITA PRN Reason: 5 MCG/MIN Stop: 04/18/17 10:46 Last Admin: 10/18/16 11:52 Dose: Not Given Heparin Sodium/Dextrose (Heparin 25,000 Unit/500 Ml D5w) 25,000 unit in 500 mls @ 19.051 mls/hr IVC .Q24H ROSITA; 10 UNIT/KG/HR PRN Reason: Protocol Stop: 04/18/17 11:46 Last Titration: 10/18/16 12:04 Dose: 9.97 unit/kg/hr, 19 mls/hr Levalbuterol HCl (Xopenex) 1.25 mg IH [id number] [facility] Stop: 04/18/17 16:01 Last Admin: 10/18/16 09:28 Dose: 1.25 mg Lisinopril (Zestril) 2.5 mg PO DAILY ROSITA PRN Reason: Protocol Stop: 04/19/17 12:01 Last Admin: 10/18/16 12:04 Dose: 2.5 mg Metoprolol Tartrate (Lopressor) 25 mg PO BID [facility] Stop: 04/19/17 12:01 Last Admin: 10/18/16 12:04 Dose: 25 mg Morphine Sulfate (Morphine Sulfate) 2 mg IVP Q4HR PRN PRN Reason: Severe Pain (7-10) Stop: 04/18/17 15:13 Multivitamins/Calcium (Thera M Plus) 1 tab PO DAILY [facility] Stop: 04/19/17 09:01 Last Admin: 10/18/16 07:58 Dose: 1 tab Naloxone HCl (Narcan) 0.4 mg IVP Q2MIN PRN PRN Reason: Opioid Reversal Stop: 04/18/17 15:13 Nitroglycerin (Nitroglycerin) 0.4 mg SL AD PRN PRN Reason: Chest Pain Stop: 04/18/17 15:35 Oxybutynin Chloride (Ditropan) 5 mg PO DAILY ROSITA PRN Reason: Protocol Stop: 04/19/17 09:01 Last Admin: 10/18/16 07:58 Dose: 5 mg Pantoprazole Sodium (Protonix) 40 mg IVP DAILY [facility] Stop: 04/19/17 09:01 Last Admin: 10/18/16 07:58 Dose: 40 mg Pharmacy Profile Note (Patient Taking Own Medication) 1 each PO HS ROSITA Stop: 04/18/17 21:01 Last Admin: 10/17/16 20:50 Dose: Not Given Pharmacy Profile Note (Patient Taking Own Medication) 1 each PO DAILY [facility] Stop: 04/19/17 09:01 Last Admin: 10/18/16 07:58 Dose: Not Given Pharmacy Profile Note (Patient Taking Own Medication) 1 each PO DAILY [facility] Stop: 04/19/17 09:01 Last Admin: 10/18/16 07:58 Dose: Not Given Laboratory Tests 10/17/16 10/17/16 10/17/16 10:31 10:31 17:14 Hgb Potassium Creatinine Magnesium Troponin I 0.14 H* 0.15 H* B-Natriuretic Peptide 381 H TSH 10/17/16 10/18/16 10/18/16 21:51 03:24 03:24 Hgb 13.0 Potassium 3.5 Creatinine 0.92 Magnesium 1.7 Troponin I 0.15 H* B-Natriuretic Peptide TSH 10/18/16 11:25 Hgb Potassium Creatinine Magnesium Troponin I B-Natriuretic Peptide TSH 1.360 - Imaging and Cardiology Chest Xray: report reviewed Echo: report reviewed Cardiac cath: report reviewed - EKG Interpretation EKG results cardiology: personally reviewed (ECG with atrial flutter, HR 122.), other (Telemetry reviewed with average HR 98, atrial flutter. Longest pasue 1.3 seconds. PVCs, couplets, and 5 triplet PVCS noted.) Consult Discharge Plan - Plan Referrals: Lisa Quiñones CNP [Advanced Practice Nurse] - 10/26/16 9:00 am <Anastasiya Hood - Last Filed: 10/18/16 15:51> Date of Encounter: 10/18/16 Assessment and Plan Discussion w patient/family: The assessment and plan as outlined above was discussed with the patient and/or family members who expressed understanding and agreement. All questions were answered. Thank you for involving us in the care of your patient. Please call with any questions. History of Present Illness History of present illness: Mr. Velazquez is a 76 year old male All Systems Review: A 10-system review of systems was performed and is negative for pertinent findings except as documented above in the HPI. Physical Examination Vital Signs, Last 4 Hours Resp Pulse Ox 10/18/16 14:20 16 94 Results 10/18/16 03:24 10/18/16 03:24 Lab Results 10/17/16 10/17/16 10/17/16 17:14 17:14 17:14 WBC 7.5 Hgb 13.6 Hct 40.8 Plt Count 168 INR 1.4 APTT 72.6 H D Sodium Potassium Chloride Carbon Dioxide BUN Creatinine Glucose Calcium Magnesium Total Bilirubin AST ALT Alkaline Phosphatase Troponin I B-Natriuretic Peptide 381 H TSH 10/17/16 10/17/16 10/17/16 17:14 21:51 21:51 WBC Hgb Hct Plt Count INR APTT 57.4 H Sodium Potassium Chloride Carbon Dioxide BUN Creatinine Glucose Calcium Magnesium Total Bilirubin AST ALT Alkaline Phosphatase Troponin I 0.15 H* 0.15 H* B-Natriuretic Peptide TSH 10/18/16 10/18/16 10/18/16 03:24 03:24 03:25 WBC 6.6 Hgb 13.0 Hct 38.9 Plt Count 164 INR APTT 52.3 H Sodium 141 Potassium 3.5 Chloride 108 Carbon Dioxide 22 BUN 16 Creatinine 0.92 Glucose 98 Calcium 8.9 Magnesium 1.7 Total Bilirubin 1.4 H AST 32 ALT 41 Alkaline Phosphatase 87 Troponin I B-Natriuretic Peptide TSH 10/18/16 10/18/16 11:25 11:25 WBC Hgb Hct Plt Count INR APTT 97.7 H D Sodium Potassium Chloride Carbon Dioxide BUN Creatinine Glucose Calcium Magnesium Total Bilirubin AST ALT Alkaline Phosphatase Troponin I B-Natriuretic Peptide TSH 1.360 - Attending Attestation I examined this patient and my medical decision-making was reviewed with the WAISTBAND SETTER LOCKSTITCH/PA/Advanced Practice Nurse/Resident Physician. I agree with the documented findings, disposition and treatment plan. Presented with new atrial flutter and reduced EF, 35-40% (prior 55%) and severe MR with regional variations. He has known CAD, recent cath in November 2015 demonstrating significant CAD. Films were reviewed with Interventionalist - no areas that would be amenable to PCI. Recommend rate control of AFL and follow up as outpatient with Dr. Ishan Aj (EP). We discussed consideration for anticoagulation with coumadin. The R/B/A were discussed with patient and . Patient expressed understanding and agreement. Ok to continue IV lasix for diuresis, continue daily weights and fluid restriction.
[2016-10-18] MEDS ORDERED: Ipratropium/Albuterol Neb 3 ML IH ONE (14:08)
[2016-10-18] MEDS ORDERED: Furosemide 20 MG/2 ML VIAL IVP ONE (14:10)
[2016-10-18] MEDS: Heparin 25,000 UNIT/500 ML D5W 25,000 UNIT/500 ML MLS IVC SCH (14:19)
--- NOTE | 2016-10-18 14:39 | Internal Med Progress Note ---
Date of Encounter: 10/18/16 Time of Encounter: 11:15 - Assessment and plan (1) Acute systolic congestive heart failure, NYHA class 2 Current Visit: Yes Status: Acute Assessment and plan: Echo 10/18/16 with LVEF 35-40%, mildly dilated left atrium, restricted motion of posterior mitral valve leaflet, severe mitral regurgitation, mid inferior, basal inferior, mid anterior lateral, basal anterior lateral, mid inferior lateral, and basal inferior lateral brooks hypokinetic. Noted to have worsening orthopenea Will continue Lasix 40mg IV BID and give additional Lasix 20mg IV closely monitor I/OS, daily weights, fluid restriction diet cardiology input appreciated (2) Atrial flutter with rapid ventricular response Current Visit: Yes Status: Acute Assessment and plan: Cardizem d/qasim given cardiomyopathy BB started continue anticoagulation with Heparin bridging with Coumadin Pharmacy to dose coumadin cardiology consultation appreciated Lopressor 5mg IV q6h prn HR>100 with sBP>110 (3) COPD (chronic obstructive pulmonary disease) Current Visit: Yes Status: Chronic Assessment and plan: will continue home nebulizer treatments not in acute exacerbation Qualifiers: COPD type: COPD with acute exacerbation Qualified Code(s): J44.1 - Chronic obstructive pulmonary disease with (acute) exacerbation (4) HLD (hyperlipidemia) Current Visit: Yes Status: Chronic Assessment and plan: continue home meds Qualifiers: Hyperlipidemia type: unspecified Qualified Code(s): E78.5 - Hyperlipidemia , unspecified (5) Severe mitral regurgitation Current Visit: Yes Status: Acute (6) CAD (coronary artery disease) Current Visit: Yes Status: Chronic Assessment and plan: no signs of angina present at this time will continue home meds Qualifiers: Coronary Disease-Associated Artery/Lesion type: unspecified vessel or lesion type [place] vs. transplanted heart: unspecified whether [place] or transplanted heart Associated angina: without angina Qualified Code(s): I25.10 - Atherosclerotic heart disease of [place] coronary artery without angina pectoris (7) DVT prophylaxis Current Visit: Yes Status: Acute Assessment and plan: Heparin gtt - Subjective Interval history: Patient seen and examined with present at bedside. Noted to have persistent orthopnea. Denies any chest pain at this time. - Constitutional Vitals: Temp Pulse Resp BP Pulse Ox 97.8 F 102 16 103/72 94 10/18/16 11:28 10/18/16 11:42 10/18/16 14:20 10/18/16 11:28 10/18/16 14:20 General appearance: Present: cooperative, mild distress (respiratory distress), A&O X 3, pleasant, obese, answers questions appropriately - Head Head exam: Present: atraumatic, normocephalic - Eye Eye exam: Present: normal appearance, conjuntiva pink, sclera anicteric - Respiratory Respiratory exam: Present: respiratory distress (mild respiratory distress, decreased inspiratory effort, mild bibasilar crackles ). Absent: wheezes - Cardiovascular Cardiovascular exam: Present: irregular rhythm, +S1, +S2, tachycardia - GI/Abdominal GI/Abdominal exam: Present: normal bowel sounds, soft, no peritoneal signs. Absent: distended, tenderness - Extremities Exam Extremities exam: Present: pedal edema (bilateral pitting edema ), warm, radial pulses palpable and symetrical. Absent: calf tenderness - Neurological Exam Neurological exam: Present: alert, oriented X3 - Psychiatric Psychiatric exam: Present: normal affect, normal mood Internal Medicine: Result - Labs CBC & Chem 7: 10/18/16 03:24 10/18/16 03:24 Labs: Short CBC 10/17/16 10/18/16 Range/Units 17:14 03:24 WBC 7.5 6.6 (4.3-11.1) K/mcL Hgb 13.6 13.0 (12.9-16.9) g/dL Hct 40.8 38.9 (37.5-50.1) % Plt Count 168 164 (140-400) K/mcL Neutrophils # 4.1 (1.6-8.9) K/mcL BMP 10/18/16 03:24 Sodium 141 Potassium 3.5 Chloride 108 Carbon Dioxide 22 BUN 16 Creatinine 0.92 Glucose 98 Calcium 8.9 Cardiac Enzymes 10/17/16 10/17/16 Range/Units 17:14 21:51 Troponin I 0.15 H* 0.15 H* (0-0.03) ng/mL Liver Function 10/18/16 Range/Units 03:24 Total Bilirubin 1.4 H (0.2-1.2) mg/dL AST 32 (5-34) Units/L ALT 41 (0-55) Units/L Alkaline Phosphatase 87 (38-126) Units/L Albumin 3.4 L (3.5-5.0) g/dL - ABG Interpretation ABG results: PT/INR, D-dimer PT 14.8 Seconds (9.4-12.1) H 10/17/16 17:14 - VTE Documentation of Mechanical Device: Graduated compression elastic hosiery Consult Discharge Plan - Plan Referrals: Lisa Quiñones CNP [Advanced Practice Nurse] - 10/26/16 9:00 am
[2016-10-18] MEDS ORDERED: Levalbuterol Neb 1.25 MG/3 ML IH PRN (14:52)
[2016-10-18] MEDS ORDERED: *HR* Metoprolol 5 MG/5 ML VIAL IVP PRN (14:54)
[2016-10-18] MEDS: Levalbuterol Neb 1.25 MG/3 ML AER SCH ×2 (16:34→20:57)
[2016-10-18] MEDS: Ipratropium Neb 0.5 MG NEBULIZER AER SCH ×3 (16:34→23:59)
[2016-10-18] MEDS: *HR* Warfarin 5 MG TABLET PO SCH (16:55)
[2016-10-18] MEDS ORDERED: Warfarin perPT PO PRN (18:00)
[2016-10-18] MEDS: Furosemide 40 MG/4 ML VIAL IVP SCH (21:58)
[2016-10-19] MEDS: Levalbuterol Neb 1.25 MG/3 ML AER SCH ×7 (04:24→19:52)
[2016-10-19] MEDS: Ipratropium Neb 0.5 MG NEBULIZER AER SCH ×5 (04:24→19:52)
[2016-10-19 06:10] LABS: Basophils % 0.6 %; Eosinophils # 0.3 K/mcL (0.0-0.6); Eosinophils % 4.5 %; Hematocrit 37.1 % (37.5-50.1); Hemoglobin 12.4 g/dL (12.9-16.9); Immature Granulocytes % 0.3 % (0-4); Lymphocytes # 1.7 K/mcL (0.6-4.6); Lymphocytes % 25.3 %; Mean Corpuscular HGB Conc 33.4 g/dL (31.6-35.5); Mean Corpuscular Hemoglobin 31.3 pg (28.0-33.3); Mean Corpuscular Volume 93.7 fL (83.0-100.0); Mean Platelet Volume 10.4 fL (9.4-12.4); Monocytes # 0.7 K/mcL (0.0-1.3); Monocytes % 10.2 %; Neutrophils # 3.9 K/mcL (1.6-8.9); Platelet Count 163 K/mcL (140-400); Red Blood Count 3.96 M/mcL (4.19-5.50); Segmented Neutrophils % 59.1 %
[2016-10-19 06:22] LABS: INR 1.3; Prothrombin Time 14.2 Seconds (9.4-12.1)
[2016-10-19 06:24] LABS: BUN/Creatinine Ratio 21 (6-26); Blood Urea Nitrogen 18 mg/dL (8-26); Calcium 8.6 mg/dL (8.6-10.8); Carbon Dioxide 24 mEq/L (19-29); Chloride 108 mEq/L (98-109); Glucose 103 mg/dL (70-99); Magnesium 1.7 mg/dL (1.6-2.6); Osmolality,Calculated 292 (280-300); Phosphorous 3.5 mg/dL (2.3-4.7); Potassium 3.4 mEq/L (3.5-4.5); Sodium 140 mEq/L (136-145); eGFR For African Americans > 60 (> 60); eGFR For Non-African Americans > 60 (> 60)
[2016-10-19] MEDS: Multivit/Ca/Min/Fe/FA 1 TAB TABLET PO SCH (07:21)
[2016-10-19] MEDS: Ascorbic Acid 500 MG TABLET PO SCH (07:21)
[2016-10-19] MEDS: Pantoprazole 40 MG VIAL IVP SCH (07:21)
[2016-10-19] MEDS: Beclomethasone 80mcg MDI IH SCH ×2 (07:49→19:53)
[2016-10-19] MEDS: Nitroglycerin 25 MG/250 ML INFUS..BTL IVC SCH (09:03)
[2016-10-19] MEDS: Furosemide 40 MG/4 ML VIAL IVP SCH ×2 (09:03→22:25)
[2016-10-19] MEDS ORDERED: *HR* Digoxin 0.5 MG/2 ML AMPUL IVP ONE (11:23)
[2016-10-19] MEDS ORDERED: *HR* Digoxin 0.5 MG/2 ML AMPUL IVP SCH (11:30)
--- NOTE | 2016-10-19 11:53 | Internal Med Progress Note ---
Date of Encounter: 10/19/16 Time of Encounter: 09:15 - Assessment and plan (1) Acute systolic congestive heart failure, NYHA class 2 Current Visit: Yes Status: Acute Assessment and plan: Echo 10/18/16 with LVEF 35-40%, mildly dilated left atrium, restricted motion of posterior mitral valve leaflet, severe mitral regurgitation, mid inferior, basal inferior, mid anterior lateral, basal anterior lateral, mid inferior lateral, and basal inferior lateral brooks hypokinetic. clinically improving Will continue Lasix 40mg IV BID closely monitor I/OS, daily weights, fluid restriction diet cardiology input appreciated (2) Atrial flutter with rapid ventricular response Current Visit: Yes Status: Acute Assessment and plan: Rate poorly controlled given labile BP, Digoxin added by cardiology continue BB continue anticoagulation with Heparin bridging with Coumadin Pharmacy to dose coumadin cardiology consultation appreciated Lopressor 5mg IV q6h prn HR>100 with sBP>110 (3) COPD (chronic obstructive pulmonary disease) Current Visit: Yes Status: Chronic Assessment and plan: will continue home nebulizer treatments not in acute exacerbation Qualifiers: COPD type: COPD with acute exacerbation Qualified Code(s): J44.1 - Chronic obstructive pulmonary disease with (acute) exacerbation (4) HLD (hyperlipidemia) Current Visit: Yes Status: Chronic Assessment and plan: continue home meds Qualifiers: Hyperlipidemia type: unspecified Qualified Code(s): E78.5 - Hyperlipidemia , unspecified (5) Severe mitral regurgitation Current Visit: Yes Status: Acute (6) CAD (coronary artery disease) Current Visit: Yes Status: Chronic Assessment and plan: no signs of angina present at this time will continue home meds Qualifiers: Coronary Disease-Associated Artery/Lesion type: unspecified vessel or lesion type [place] vs. transplanted heart: unspecified whether [place] or transplanted heart Associated angina: without angina Qualified Code(s): I25.10 - Atherosclerotic heart disease of [place] coronary artery without angina pectoris (7) DVT prophylaxis Current Visit: Yes Status: Acute Assessment and plan: Heparin gtt (8) Electrolyte abnormality Current Visit: Yes Status: Acute Assessment and plan: Hypokalemia K supplemented continue to monitor electrolytes and replace as needed - Subjective Interval history: Patient seen and examined with present at bedside. Noted to be tachycardic in Afib but reports of feeling better compared to previous day. Reports of significant improvement in his breathing status. No overnight issues reported - Constitutional Vitals: Temp Pulse Resp BP Pulse Ox 97.7 F 115 18 92/73 95 10/19/16 11:15 10/19/16 11:15 10/19/16 11:15 10/19/16 11:15 10/19/16 11:15 General appearance: Present: cooperative, A&O X 3, pleasant, no acute distress, obese, answers questions appropriately - Head Head exam: Present: atraumatic, normocephalic - Eye Eye exam: Present: normal appearance, conjuntiva pink, sclera anicteric - Respiratory Respiratory exam: Absent: respiratory distress, wheezes (bibasilar crackles) - Cardiovascular Cardiovascular exam: Present: irregular rhythm, +S1, +S2, tachycardia - GI/Abdominal GI/Abdominal exam: Present: normal bowel sounds, soft, no peritoneal signs. Absent: distended, tenderness - Extremities Exam Extremities exam: Present: pedal edema, warm, radial pulses palpable and symetrical. Absent: calf tenderness - Neurological Exam Neurological exam: Present: alert, oriented X3 - Psychiatric Psychiatric exam: Present: normal affect, normal mood Internal Medicine: Result - Labs CBC & Chem 7: 10/19/16 05:12 10/19/16 05:12 Labs: Short CBC 10/19/16 Range/Units 05:12 WBC 6.6 (4.3-11.1) K/mcL Hgb 12.4 L (12.9-16.9) g/dL Hct 37.1 L (37.5-50.1) % Plt Count 163 (140-400) K/mcL Neutrophils # 3.9 (1.6-8.9) K/mcL BMP 10/19/16 05:12 Sodium 140 Potassium 3.4 L Chloride 108 Carbon Dioxide 24 BUN 18 Creatinine 0.86 Glucose 103 H Calcium 8.6 - ABG Interpretation ABG results: PT/INR, D-dimer PT 14.2 Seconds (9.4-12.1) H 10/19/16 05:12 - VTE Documentation of Mechanical Device: Graduated compression elastic hosiery Consult Discharge Plan - Plan Referrals: Lisa Quiñones DECISION SCIENCE ANALYST [Advanced Practice Nurse] - 10/26/16 9:00 am
--- NOTE | 2016-10-19 12:23 | Cardiology Progress Note ---
Date of Encounter: 10/19/16 Time of Encounter: 10:00 Assessment and Plan (1) Atrial flutter with rapid ventricular response Current Visit: Yes Status: Acute Per cardiology: -New onset atrial flutter with RVR. -Was on cardizem drip. -ECG with a.flutter, HR 122. -Telemetry reviewed with average HR previous 12 hours noted to be 115, atrial flutter. -Echo 10/18/16 with LVEF 35-40%, mildly dilated left atrium, restricted motion of posterior mitral valve leaflet, severe mitral regurgitation, mid inferior, basal inferior, mid anterior lateral, basal anterior lateral, mid inferior lateral, and basal inferior lateral brooks hypokinetic. -[id number] score 5 (age, HTN, CHF, vascular disease). Currently on heparin drip. Due to severe MR, patient will need coumadin for senior care anticoagulation. I spoke at length with patient and regarding increased risk of stroke if not on anticoagulation and need for coumadin due to valvular heart disease. Patient agreeable for coumadin. -Coumadin was started yesterday. -No cardizem due to cardiomyopathy. -On beta cynthia. -Per discussion with will start IV digoxin loading dose. Will start po digoxin tomorrow. -Will continue to monitor. (2) Acute systolic congestive heart failure, NYHA class 2 Current Visit: Yes Status: Acute Per cardiology: -Echo as above with LVEF 35-40%. -Previous echo with EF 55%. -Mild edema noted to right lower extremity, moderate edema noted to left lower extremity. -On lasix IV BID. -Net negative 161ml this admission. -Chest CT with bilateral pleural effusions right greater than left. -Of note, current weight 211.9 pounds, per office records weight 05/2016 225 pounds. -BNP 381 on admission. -Agree with strict i/os, daily weights, and fluid restriction. -CHF education given to patient and family. -Will continue to monitor. -Agree with continuation of lasix. -Can consider venous duplex due to left leg more edematous. (3) Severe mitral regurgitation Current Visit: Yes Status: Acute Per cardiology: -Severe MR per echocardiogram. -Patient with increased shortness of breath and edema. -Will continue to monitor. (4) CAD (coronary artery disease) Current Visit: Yes Status: Chronic Per cardiology: -Known CAD with CABG x3 1997. -[facility] 11/30/15 with 100% stenosis proximal LAD, 100% OM1, 100% proximal RCA, collaterals from LAD, CARD to LAD, SVG to OM occluded, and SVG to PDA occluded. Cath films reviewed with , who states lesions are not ammendable to PCI. -Patient has chronic chest pain. -Reports increased chest pain with atrial flutter with RVR. -Denies current chest pain. -ON plavix, statin, beta cynthia. Patient refuses to take ASA due to increased bruising. -ECG with no ischemic changes. -Echo as above. -Will continue to monitor. Qualifiers: Coronary Disease-Associated Artery/Lesion type: unspecified vessel or lesion type [place] vs. transplanted heart: unspecified whether [place] or transplanted heart Associated angina: without angina Qualified Code(s): I25.10 - Atherosclerotic heart disease of [place] coronary artery without angina pectoris (5) Elevated troponin Current Visit: Yes Status: Acute Per cardiology: -ELevated troponin 0.14, 0.15, 0.15. -Troponins flat and adynamic in the setting of atrial flutter with RVR. -Denies current chest pain. -Echo as above. -Known CAD, not ammednable to PCI. -Do not suspect NSTEMI, suspect demand ischemia related to atrial flutter with RVR. No cardiac rehab warranted at this time. (6) Cardiomyopathy Current Visit: Yes Status: Acute Per cardiology: -New cardiomyopathy with LVEF 35-40%, previous 55%. -Echo as above. -On lasix. -beta cynthia and wilton inhibitor started. -recommend repeating echoacrdiogram in 3 months. Qualifiers: Cardiomyopathy type: unspecified Qualified Code(s): I42.9 - Cardiomyopathy , unspecified Discussion w patient/family: The assessment and plan as outlined above was discussed with the patient and/or family members who expressed understanding and agreement. All questions were answered. Thank you for involving us in the care of your patient. Please call with any questions. Discussed and reviewed with . Subjective Principal diagnosis: atrial flutter with RVR Interval history: Patient states over the past couple of weeks he has had worsening shortness of breath and chest pain. Patient has chronic angina, but states this pain was worse. Patient was admitted to [facility] and noted to be in atrial flutter with RVR. Patient declines history of atrial fibrillation/flutter. Patient denies current chest pain, palpitations, or fluttering. Patient denies bleeding or blood loss. Reports has now finished chemotherapy for bladder CA. Patient states breathing has improved today. Patient states swelling has improved today also. Objective Vital Signs, Last 4 Hours Temp Pulse Resp BP Pulse Ox 10/19/16 11:55 16 92/73 95 10/19/16 11:15 97.7 F 115 18 92/73 95 10/19/16 11:00 116 General: Conversant, No Apparent Distress HEENT: Atraumatic, Normocephaly, Mucus Membranes Moist Neck: No JVD, Normal carotid pulses Cardiac: Other (Irregularly, irregular. Systolic murmur noted. ) Lungs: Normal Breath Sounds, No Wheeze, Rales, Rhonchi Neuro: Alert and responsive, No focal deficits noted Abdomen: Soft, Non-Tender Skin: No rashes noted on visualized skin Musculoskeletal: No Chest Wall Tenderness Extremities: No Clubbing, No Cyanosis, Normal Pulses, Other (Mild pedal edema noted to right lower extremity. Moderate pedal edema noted to left lower extremity. ) Results 10/19/16 05:12 10/19/16 05:12 Lab Results Active Medications Acetaminophen (Tylenol) 650 mg PO Q6HR PRN PRN Reason: Mild Pain (1-3) Stop: 04/18/17 15:13 Acetaminophen/Hydrocodone Bitart ([place] 5-325 Mg) 1 tab PO Q4HR PRN PRN Reason: Moderate Pain (4-6) Stop: 04/18/17 15:13 Ascorbic Acid (Vitamin C) 500 mg PO DAILY [facility] Stop: 04/19/17 09:01 Last Admin: 10/19/16 07:21 Dose: 500 mg Atorvastatin Calcium (Lipitor) 80 mg PO HS ROSITA Stop: 04/18/17 21:01 Last Admin: 10/18/16 21:57 Dose: 80 mg Beclomethasone Dipropionate (Qvar 80 Mcg) 2 puff IH BID ROSITA PRN Reason: Protocol Stop: 04/18/17 21:01 Last Admin: 10/19/16 07:49 Dose: 2 puff Clopidogrel Bisulfate (Plavix) 75 mg PO DAILY [facility] Stop: 04/19/17 09:01 Last Admin: 10/19/16 07:21 Dose: 75 mg Digoxin (Lanoxin) 0.25 mg IVP Q6HR [facility] Stop: 10/20/16 00:01 Furosemide (Lasix) 40 mg IVP BID [facility] Stop: 04/19/17 21:01 Last Admin: 10/19/16 09:03 Dose: Not Given Ipratropium [place] (Atrovent Neb) 0.5 mg AER [id number] [facility] Stop: 04/19/17 16:01 Last Admin: 10/19/16 11:55 Dose: 0.5 mg Levalbuterol HCl (Xopenex) 1.25 mg IH Q2H PRN PRN Reason: SOB/WHEEZE Stop: 04/18/17 16:01 Levalbuterol HCl (Xopenex) 1.25 mg AER [id number] [facility] Stop: 04/19/17 16:01 Last Admin: 10/19/16 11:55 Dose: 1.25 mg Lisinopril (Zestril) 2.5 mg PO DAILY ROSITA PRN Reason: Protocol Stop: 04/19/17 12:01 Last Admin: 10/19/16 09:03 Dose: Not Given Metoprolol Tartrate (Lopressor) 25 mg PO BID [facility] Stop: 04/19/17 12:01 Last Admin: 10/19/16 07:21 Dose: 25 mg Metoprolol Tartrate (Lopressor) 5 mg IVP Q6H PRN PRN Reason: HR>100 AND SBP>110 Stop: 04/19/17 14:55 Morphine Sulfate (Morphine Sulfate) 2 mg IVP Q4HR PRN PRN Reason: Severe Pain (7-10) Stop: 04/18/17 15:13 Multivitamins/Calcium (Thera M Plus) 1 tab PO DAILY [facility] Stop: 04/19/17 09:01 Last Admin: 10/19/16 07:21 Dose: 1 tab Naloxone HCl (Narcan) 0.4 mg IVP Q2MIN PRN PRN Reason: Opioid Reversal Stop: 04/18/17 15:13 Nitroglycerin (Nitroglycerin) 0.4 mg SL AD PRN PRN Reason: Chest Pain Stop: 04/18/17 15:35 Oxybutynin Chloride (Ditropan) 5 mg PO DAILY [facility] PRN Reason: Protocol Stop: 04/19/17 09:01 Last Admin: 10/19/16 07:21 Dose: 5 mg Pantoprazole Sodium (Protonix) 40 mg IVP DAILY [facility] Stop: 04/19/17 09:01 Last Admin: 10/19/16 07:21 Dose: 40 mg Warfarin Sodium (Coumadin Perpt) 1 each PO DAILY@1800 PRN PRN Reason: SEE COMMENTS Stop: 04/19/17 18:01 Warfarin Sodium (Coumadin) 5 mg PO 1800 ROSITA Stop: 04/19/17 18:01 Last Admin: 10/18/16 16:55 Dose: 5 mg Laboratory Tests 10/17/16 10/17/16 10/17/16 10:31 17:14 21:51 Hgb Potassium Creatinine Magnesium Troponin I 0.14 H* 0.15 H* 0.15 H* TSH 10/18/16 10/18/16 10/19/16 03:24 11:25 05:12 Hgb 12.4 L Potassium 3.5 Creatinine Magnesium Troponin I TSH 1.360 10/19/16 05:12 Hgb Potassium 3.4 L Creatinine 0.86 Magnesium 1.7 Troponin I TSH - Imaging and Cardiology Chest Xray: report reviewed Echo: report reviewed Cardiac cath: report reviewed - EKG Interpretation EKG results cardiology: other (Telemetry reviewed with average HR previous 12 hours noted to be 115, atrial flutter. PVCs and couplets noted.) - VTE Documentation of Mechanical Device: Graduated compression elastic hosiery Consult Discharge Plan - Plan Referrals: Lisa Quiñones, REFUGIO [Advanced Practice Nurse] - 10/26/16 9:00 am
[2016-10-19] MEDS: *HR* Enoxaparin 100 MG/ML SYRINGE SQ SCH (17:37)
[2016-10-19] MEDS: *HR* Warfarin 5 MG TABLET PO SCH (17:37)
[2016-10-19] MEDS: *HR* Digoxin 0.5 MG/2 ML AMPUL IVP SCH (17:38)
[2016-10-20] MEDS: *HR* Digoxin 0.5 MG/2 ML AMPUL IVP SCH (00:20)
[2016-10-20] MEDS: Levalbuterol Neb 1.25 MG/3 ML AER SCH ×7 (00:24→23:24)
[2016-10-20] MEDS: Ipratropium Neb 0.5 MG NEBULIZER AER SCH ×7 (00:24→23:24)
[2016-10-20] MEDS: *HR* Enoxaparin 100 MG/ML SYRINGE SQ SCH ×2 (06:08→17:32)
[2016-10-20 07:17] LABS: INR 1.5; Prothrombin Time 16.5 Seconds (9.4-12.1)
[2016-10-20 07:26] LABS: BUN/Creatinine Ratio 20 (6-26); Blood Urea Nitrogen 17 mg/dL (8-26); Calcium 9.1 mg/dL (8.6-10.8); Carbon Dioxide 23 mEq/L (19-29); Chloride 107 mEq/L (98-109); Glucose 90 mg/dL (70-99); Magnesium 1.6 mg/dL (1.6-2.6); Osmolality,Calculated 291 (280-300); Phosphorous 3.3 mg/dL (2.3-4.7); Potassium 3.9 mEq/L (3.5-4.5); Sodium 140 mEq/L (136-145); eGFR For African Americans > 60 (> 60); eGFR For Non-African Americans > 60 (> 60)
[2016-10-20] MEDS: Pantoprazole 40 MG VIAL IVP SCH (08:10)
[2016-10-20] MEDS: Furosemide 40 MG/4 ML VIAL IVP SCH ×2 (08:10→20:43)
[2016-10-20] MEDS: Ascorbic Acid 500 MG TABLET PO SCH (08:10)
[2016-10-20] MEDS: Multivit/Ca/Min/Fe/FA 1 TAB TABLET PO SCH (08:10)
[2016-10-20] MEDS: Beclomethasone 80mcg MDI IH SCH ×2 (08:13→20:05)
[2016-10-20 08:17] LABS: Basophils % 0.3 %; Eosinophils # 0.3 K/mcL (0.0-0.6); Eosinophils % 2.6 %; Hematocrit 39.1 % (37.5-50.1); Hemoglobin 13.3 g/dL (12.9-16.9); Immature Granulocytes % 0.3 % (0-4); Lymphocytes # 1.4 K/mcL (0.6-4.6); Lymphocytes % 14.4 %; Mean Corpuscular Hemoglobin 31.6 pg (28.0-33.3); Mean Corpuscular Volume 92.9 fL (83.0-100.0); Mean Platelet Volume 10.9 fL (9.4-12.4); Monocytes # 0.9 K/mcL (0.0-1.3); Monocytes % 8.7 %; Neutrophils # 7.2 K/mcL (1.6-8.9); Platelet Count 180 K/mcL (140-400); Red Blood Count 4.21 M/mcL (4.19-5.50); Segmented Neutrophils % 73.7 %
--- NOTE | 2016-10-20 09:03 | Internal Med Progress Note ---
Date of Encounter: 10/20/16 Time of Encounter: 08:45 - Assessment and plan (1) Acute systolic congestive heart failure, NYHA class 2 Current Visit: Yes Status: Acute Assessment and plan: Echo 10/18/16 with LVEF 35-40%, mildly dilated left atrium, restricted motion of posterior mitral valve leaflet, severe mitral regurgitation, mid inferior, basal inferior, mid anterior lateral, basal anterior lateral, mid inferior lateral, and basal inferior lateral brooks hypokinetic. clinically improving Will continue Lasix 40mg IV BID closely monitor I/OS, daily weights, fluid restriction diet cardiology input appreciated (2) Atrial flutter with rapid ventricular response Current Visit: Yes Status: Acute Assessment and plan: Rate poorly controlled patient got loading dose of Digoxin yesterday continue BB will follow up with cardiology in regards to better HR control d/c heparin and started Lovenox SQ therapeutic dose for bridging with coumadin Unsafe to continue coumadin alone given associated risk of coumadin necrosis INR: 1.7, will continue to closely monitor. Goal INR: 2-3 Pharmacy to dose coumadin (3) COPD (chronic obstructive pulmonary disease) Current Visit: Yes Status: Chronic Assessment and plan: will continue home nebulizer treatments not in acute exacerbation Qualifiers: COPD type: COPD with acute exacerbation Qualified Code(s): J44.1 - Chronic obstructive pulmonary disease with (acute) exacerbation (4) HLD (hyperlipidemia) Current Visit: Yes Status: Chronic Assessment and plan: continue home meds Qualifiers: Hyperlipidemia type: unspecified Qualified Code(s): E78.5 - Hyperlipidemia , unspecified (5) Severe mitral regurgitation Current Visit: Yes Status: Acute (6) CAD (coronary artery disease) Current Visit: Yes Status: Chronic Assessment and plan: no signs of angina present at this time will continue home meds Qualifiers: Coronary Disease-Associated Artery/Lesion type: unspecified vessel or lesion type [place] vs. transplanted heart: unspecified whether [place] or transplanted heart Associated angina: without angina Qualified Code(s): I25.10 - Atherosclerotic heart disease of [place] coronary artery without angina pectoris (7) DVT prophylaxis Current Visit: Yes Status: Acute Assessment and plan: Heparin gtt (8) Electrolyte abnormality Current Visit: Yes Status: Resolved - Subjective Interval history: Patient seen and examined. Resting comfortably in bed and reports of feeling significantly better. Breathing comfortably on nasal cannula. No overnight issues reported. Patient continues to have poorly controlled Afib with RVR, digoxin added by cardiology. Patient clinically asymptomatic at this time. Denies any discomfort or complains at this time. - Constitutional Vitals: Temp Pulse Resp BP Pulse Ox 97.5 F L 106 16 105/79 94 10/20/16 08:15 10/20/16 08:15 10/20/16 08:15 10/20/16 08:15 10/20/16 08:15 General appearance: Present: cooperative, A&O X 3, pleasant, no acute distress, obese, answers questions appropriately - Head Head exam: Present: atraumatic, normocephalic - Eye Eye exam: Present: conjuntiva pink, sclera anicteric - Respiratory Respiratory exam: Absent: respiratory distress, wheezes - Cardiovascular Cardiovascular exam: Present: irregular rhythm, +S1, +S2, tachycardia - GI/Abdominal GI/Abdominal exam: Present: normal bowel sounds, soft, no peritoneal signs. Absent: distended, tenderness - Extremities Exam Extremities exam: Present: warm, radial pulses palpable and symetrical (mild pedal edema in Lt ankle, no edema in right lower extremity). Absent: calf tenderness - Neurological Exam Neurological exam: Present: alert, oriented X3 - Psychiatric Psychiatric exam: Present: normal affect, normal mood Internal Medicine: Result - Labs CBC & Chem 7: 10/20/16 06:25 10/20/16 06:25 Labs: Short CBC 10/20/16 Range/Units 06:25 WBC 9.8 (4.3-11.1) K/mcL Hgb 13.3 (12.9-16.9) g/dL Hct 39.1 (37.5-50.1) % Plt Count 180 (140-400) K/mcL Neutrophils # 7.2 (1.6-8.9) K/mcL BMP 10/20/16 06:25 Sodium 140 Potassium 3.9 Chloride 107 Carbon Dioxide 23 BUN 17 Creatinine 0.85 Glucose 90 Calcium 9.1 - ABG Interpretation ABG results: PT/INR, D-dimer PT 16.5 Seconds (9.4-12.1) H 10/20/16 06:25 - VTE Documentation of Mechanical Device: Graduated compression elastic hosiery Consult Discharge Plan - Plan Referrals: Lisa Quiñones CNP [Advanced Practice Nurse] - 10/26/16 9:00 am
[2016-10-20] MEDS: *HR* Digoxin 0.125 MG TABLET PO SCH (09:15)
--- NOTE | 2016-10-20 11:19 | Cardiology Progress Note ---
Date of Encounter: 10/20/16 Time of Encounter: 08:30 Assessment and Plan (1) Atrial flutter with rapid ventricular response Current Visit: Yes Status: Acute Per cardiology: -New onset atrial flutter with RVR. -Was on cardizem drip. -ECG with a.flutter, HR 122. -Telemetry reviewed with average HR previous 12 hours noted to be 109, atrial flutter. -Echo 10/18/16 with LVEF 35-40%, mildly dilated left atrium, restricted motion of posterior mitral valve leaflet, severe mitral regurgitation, mid inferior, basal inferior, mid anterior lateral, basal anterior lateral, mid inferior lateral, and basal inferior lateral brooks hypokinetic. -[id number] score 5 (age, HTN, CHF, vascular disease). Currently on heparin drip. Due to severe MR, patient will need coumadin for [facility] anticoagulation. I spoke at length with patient and regarding increased risk of stroke if not on anticoagulation and need for coumadin due to valvular heart disease. Patient agreeable for coumadin. -Coumadin was started yesterday. Of note, on lovenox per primary service. -No cardizem due to cardiomyopathy. -On beta cynthia, digoxin. -BPs 100s systolic. -Will switch lopressor to toprol with net increase in dose. -Will continue to monitor HR and BP. (2) Acute systolic congestive heart failure, NYHA class 2 Current Visit: Yes Status: Acute Per cardiology: -Echo as above with LVEF 35-40%. -Previous echo with EF 55%. -Left leg edema, of note patient reports left leg is usually more swollen due to vein harvesting from CABG. -On lasix IV BID. -Net negative 2800ml this admission. -Chest CT with bilateral pleural effusions right greater than left. -Of note, current weight 211.9 pounds, per office records weight 05/2016 225 pounds. -BNP 381 on admission. -Agree with strict i/os, daily weights, and fluid restriction. -CHF education given to patient and family. -Will continue to monitor. -Agree with continuation of lasix. -Can consider venous duplex due to left leg more edematous. (3) Severe mitral regurgitation Current Visit: Yes Status: Acute Per cardiology: -Severe MR per echocardiogram. -Patient with increased shortness of breath and edema. -Will continue to monitor. (4) CAD (coronary artery disease) Current Visit: Yes Status: Chronic Per cardiology: -Known CAD with CABG x3 1997. -[facility] 11/30/15 with 100% stenosis proximal LAD, 100% OM1, 100% proximal RCA, collaterals from LAD, CARD to LAD, SVG to OM occluded, and SVG to PDA occluded. Cath films reviewed with , who states lesions are not ammendable to PCI. -Patient has chronic chest pain. -Reports increased chest pain with atrial flutter with RVR. -Denies current chest pain. -ON plavix, statin, beta cynthia. Patient refuses to take ASA due to increased bruising. -ECG with no ischemic changes. -Echo as above. -Will continue to monitor. Qualifiers: Coronary Disease-Associated Artery/Lesion type: unspecified vessel or lesion type [place] vs. transplanted heart: unspecified whether [place] or transplanted heart Associated angina: without angina Qualified Code(s): I25.10 - Atherosclerotic heart disease of [place] coronary artery without angina pectoris (5) Elevated troponin Current Visit: Yes Status: Acute Per cardiology: -ELevated troponin 0.14, 0.15, 0.15. -Troponins flat and adynamic in the setting of atrial flutter with RVR. -Denies current chest pain. -Echo as above. -Known CAD, not ammednable to PCI. -Do not suspect NSTEMI, suspect demand ischemia related to atrial flutter with RVR. No cardiac rehab warranted at this time. (6) Cardiomyopathy Current Visit: Yes Status: Acute Per cardiology: -New cardiomyopathy with LVEF 35-40%, previous 55%. -Echo as above. -On lasix. -On beta cynthia and wilton inhibitor. -Beta cynthia switched to toprol. -recommend repeating echoacrdiogram in 3 months. Qualifiers: Cardiomyopathy type: unspecified Qualified Code(s): I42.9 - Cardiomyopathy , unspecified Discussion w patient/family: The assessment and plan as outlined above was discussed with the patient who expressed understanding and agreement. All questions were answered. Thank you for involving us in the care of your patient. Please call with any questions. Discussed and reviewed with . Subjective Principal diagnosis: atrial flutter with RVR Interval history: Patient states over the past couple of weeks he has had worsening shortness of breath and chest pain. Patient has chronic angina, but states this pain was worse. Patient was admitted to [facility] and noted to be in atrial flutter with RVR. Patient declines history of atrial fibrillation/flutter. Patient denies current chest pain, palpitations, or fluttering. Patient denies bleeding or blood loss. Reports has now finished chemotherapy for bladder CA. Patient states breathing has improved today. Patient states swelling has improved today also. Patient states he did not sleep well last night, but he feels good today. Objective Vital Signs, Last 4 Hours Temp Pulse Resp BP Pulse Ox 10/20/16 08:15 97.5 F L 106 16 105/79 94 10/20/16 08:10 16 97 10/20/16 08:05 103 General: Conversant HEENT: Atraumatic, Normocephaly, Mucus Membranes Moist Neck: No JVD, Normal carotid pulses Cardiac: Other (Irregularly, irregular) Lungs: Normal Breath Sounds, No Wheeze, Rales, Rhonchi Neuro: Alert and responsive, No focal deficits noted Abdomen: Soft, Non-Tender Skin: No rashes noted on visualized skin Musculoskeletal: No Chest Wall Tenderness Extremities: No Clubbing, No Cyanosis, Normal Pulses, Other (1+ left lower extremity pitting edema. ) Results 10/20/16 06:25 10/20/16 06:25 Lab Results Active Medications Acetaminophen (Tylenol) 650 mg PO Q6HR PRN PRN Reason: Mild Pain (1-3) Stop: 04/18/17 15:13 Acetaminophen/Hydrocodone Bitart ([place] 5-325 Mg) 1 tab PO Q4HR PRN PRN Reason: Moderate Pain (4-6) Stop: 04/18/17 15:13 Ascorbic Acid (Vitamin C) 500 mg PO DAILY [facility] Stop: 04/19/17 09:01 Last Admin: 10/20/16 08:10 Dose: 500 mg Atorvastatin Calcium (Lipitor) 80 mg PO HS [facility] Stop: 04/18/17 21:01 Last Admin: 10/19/16 22:25 Dose: 80 mg Beclomethasone Dipropionate (Qvar 80 Mcg) 2 puff IH BID [facility] PRN Reason: Protocol Stop: 04/18/17 21:01 Last Admin: 10/20/16 08:13 Dose: 2 puff Clopidogrel Bisulfate (Plavix) 75 mg PO DAILY [facility] Stop: 04/19/17 09:01 Last Admin: 10/20/16 08:10 Dose: 75 mg Digoxin (Lanoxin) 0.125 mg PO DAILY [facility] Stop: 04/21/17 09:01 Last Admin: 10/20/16 09:15 Dose: 0.125 mg Enoxaparin Sodium (Lovenox) 100 mg SQ Q12H [facility] Stop: 04/20/17 18:01 Last Admin: 10/20/16 06:08 Dose: 100 mg Furosemide (Lasix) 40 mg IVP BID [facility] Stop: 04/19/17 21:01 Last Admin: 10/20/16 08:10 Dose: 40 mg Ipratropium [place] (Atrovent Neb) 0.5 mg AER [id number] [facility] Stop: 04/19/17 16:01 Last Admin: 10/20/16 08:09 Dose: 0.5 mg Levalbuterol HCl (Xopenex) 1.25 mg IH Q2H PRN PRN Reason: SOB/WHEEZE Stop: 04/18/17 16:01 Levalbuterol HCl (Xopenex) 1.25 mg AER [id number] [facility] Stop: 04/19/17 16:01 Last Admin: 10/20/16 08:10 Dose: 1.25 mg Lisinopril (Zestril) 2.5 mg PO DAILY [facility] PRN Reason: Protocol Stop: 04/19/17 12:01 Last Admin: 10/20/16 08:10 Dose: 2.5 mg Metoprolol Succinate (Toprol Xl) 37.5 mg PO BID [facility] Stop: 04/21/17 21:01 Metoprolol Tartrate (Lopressor) 5 mg IVP Q6H PRN PRN Reason: HR>100 AND SBP>110 Stop: 04/19/17 14:55 Morphine Sulfate (Morphine Sulfate) 2 mg IVP Q4HR PRN PRN Reason: Severe Pain (7-10) Stop: 04/18/17 15:13 Multivitamins/Calcium (Thera M Plus) 1 tab PO DAILY [facility] Stop: 04/19/17 09:01 Last Admin: 10/20/16 08:10 Dose: 1 tab Naloxone HCl (Narcan) 0.4 mg IVP Q2MIN PRN PRN Reason: Opioid Reversal Stop: 04/18/17 15:13 Nitroglycerin (Nitroglycerin) 0.4 mg SL AD PRN PRN Reason: Chest Pain Stop: 04/18/17 15:35 Oxybutynin Chloride (Ditropan) 5 mg PO DAILY [facility] PRN Reason: Protocol Stop: 04/19/17 09:01 Last Admin: 10/20/16 08:10 Dose: 5 mg Pantoprazole Sodium (Protonix) 40 mg IVP DAILY [facility] Stop: 04/19/17 09:01 Last Admin: 10/20/16 08:10 Dose: 40 mg Warfarin Sodium (Coumadin Perpt) 1 each PO DAILY@1800 PRN PRN Reason: SEE COMMENTS Stop: 04/19/17 18:01 Warfarin Sodium (Coumadin) 5 mg PO 1800 [facility] Stop: 04/19/17 18:01 Last Admin: 10/19/16 17:37 Dose: 5 mg Laboratory Tests 10/20/16 10/20/16 06:25 06:25 Hgb 13.3 Potassium 3.9 Creatinine 0.85 - Imaging and Cardiology Chest Xray: report reviewed Echo: report reviewed - EKG Interpretation EKG results cardiology: other (Telemetry reviewed with average HR 109, atrial flutter. PVCs and couplet PVCs noted.) - VTE Documentation of Mechanical Device: Graduated compression elastic hosiery Consult Discharge Plan - Plan Referrals: Lisa Quiñones CNP [Advanced Practice Nurse] - 10/26/16 9:00 am
[2016-10-20] MEDS: *HR* Warfarin 5 MG TABLET PO SCH (17:32)
[2016-10-20] MEDS: Metoprolol XL (24 HR) Succ 25 MG TAB.ER.24H PO SCH (20:43)
[2016-10-21] MEDS: Levalbuterol Neb 1.25 MG/3 ML AER SCH ×6 (04:29→23:06)
[2016-10-21] MEDS: Ipratropium Neb 0.5 MG NEBULIZER AER SCH ×6 (04:29→23:06)
[2016-10-21] MEDS: *HR* Enoxaparin 100 MG/ML SYRINGE SQ SCH (05:02)
[2016-10-21 05:05] LABS: Basophils # 0.1 K/mcL (0.0-0.2); Basophils % 0.6 %; Eosinophils # 0.3 K/mcL (0.0-0.6); Eosinophils % 3.3 %; Hematocrit 42.7 % (37.5-50.1); Hemoglobin 14.1 g/dL (12.9-16.9); Immature Granulocytes % 0.2 % (0-4); Lymphocytes # 2.2 K/mcL (0.6-4.6); Lymphocytes % 26.1 %; Mean Corpuscular Hemoglobin 30.7 pg (28.0-33.3); Mean Corpuscular Volume 92.8 fL (83.0-100.0); Mean Platelet Volume 9.9 fL (9.4-12.4); Monocytes # 0.9 K/mcL (0.0-1.3); Monocytes % 10.2 %; Neutrophils # 5.1 K/mcL (1.6-8.9); Platelet Count 191 K/mcL (140-400); Red Cell Distribution Width 13.1 % (11.5-14.5); Segmented Neutrophils % 59.6 %
[2016-10-21 05:10] LABS: INR 2.7; Prothrombin Time 29.5 Seconds (9.4-12.1)
[2016-10-21 05:22] LABS: BUN/Creatinine Ratio 17 (6-26); Blood Urea Nitrogen 16 mg/dL (8-26); Calcium 9.1 mg/dL (8.6-10.8); Carbon Dioxide 27 mEq/L (19-29); Chloride 103 mEq/L (98-109); Glucose 101 mg/dL (70-99); Magnesium 1.6 mg/dL (1.6-2.6); Osmolality,Calculated 289 (280-300); Phosphorous 4.2 mg/dL (2.3-4.7); Potassium 3.8 mEq/L (3.5-4.5); Sodium 139 mEq/L (136-145); eGFR For African Americans > 60 (> 60); eGFR For Non-African Americans > 60 (> 60)
[2016-10-21] MEDS: Beclomethasone 80mcg MDI IH SCH ×2 (07:41→20:13)
[2016-10-21] MEDS: Pantoprazole 40 MG VIAL IVP SCH (07:44)
[2016-10-21] MEDS: Ascorbic Acid 500 MG TABLET PO SCH (07:45)
[2016-10-21] MEDS: Multivit/Ca/Min/Fe/FA 1 TAB TABLET PO SCH (07:45)
[2016-10-21] MEDS: *HR* Digoxin 0.125 MG TABLET PO SCH (07:46)
[2016-10-21] MEDS: Furosemide 40 MG/4 ML VIAL IVP SCH (07:57)
[2016-10-21] MEDS: Metoprolol XL (24 HR) Succ 25 MG TAB.ER.24H PO SCH ×2 (07:58→21:33)
[2016-10-21] MEDS ORDERED: Amiodarone Premix 360 MG/200 ML BAG IVC ONE (08:51)
--- NOTE | 2016-10-21 10:20 | Cardiology Progress Note ---
Date of Encounter: 10/21/16 Time of Encounter: 09:30 Assessment and Plan (1) Atrial flutter with rapid ventricular response Current Visit: Yes Status: Acute Per cardiology: -New onset atrial flutter with RVR. -ECG with a.flutter, HR 122. -Telemetry reviewed with average HR previous 12 hours noted to be 108, atrial flutter. -Echo 10/18/16 with LVEF 35-40%, mildly dilated left atrium, restricted motion of posterior mitral valve leaflet, severe mitral regurgitation, mid inferior, basal inferior, mid anterior lateral, basal anterior lateral, mid inferior lateral, and basal inferior lateral brooks hypokinetic. -Dsqrr7orng score 5 (age, HTN, CHF, vascular disease). Currently on heparin drip. Due to severe MR, patient will need coumadin for care home anticoagulation. I spoke at length with patient and regarding increased risk of stroke if not on anticoagulation and need for coumadin due to valvular heart disease. Patient agreeable for coumadin. -On coumadin with INR today 2.7. -No cardizem due to cardiomyopathy. -On beta cynthia, digoxin. -BPs 80s systolic. -Per discussion with , will start amiodarone drip with no bolus. -Will continue to monitor BP and HR. (2) Acute systolic congestive heart failure, NYHA class 2 Current Visit: Yes Status: Acute Per cardiology: -Echo as above with LVEF 35-40%. -Previous echo with EF 55%. -Left leg edema, of note patient reports left leg is usually more swollen due to vein harvesting from CABG. Patient states this amount of swelling today is about his normal. -On lasix IV BID. -Net negative 2800ml this admission. -Chest CT with bilateral pleural effusions right greater than left. -Of note, current weight 211.9 pounds, per office records weight 05/2016 225 pounds. -BNP 381 on admission, Today 440. -Agree with strict i/os, daily weights, and fluid restriction. -CHF education given to patient and family. -BPs 80s systolic currently. -Will repeat chest x-ray. -IV lasix stopped for now due to hypotension. -Will continue to monitor (3) Severe mitral regurgitation Current Visit: Yes Status: Acute Per cardiology: -Severe MR per echocardiogram. -Patient with increased shortness of breath and edema. -Will continue to monitor. (4) CAD (coronary artery disease) Current Visit: Yes Status: Chronic Per cardiology: -Known CAD with CABG x3 1997. -[facility] 11/30/15 with 100% stenosis proximal LAD, 100% OM1, 100% proximal RCA, collaterals from LAD, CARD to LAD, SVG to OM occluded, and SVG to PDA occluded. Cath films reviewed with , who states lesions are not ammendable to PCI. -Patient has chronic chest pain. -Reports increased chest pain with atrial flutter with RVR. -Denies current chest pain. -ON plavix, statin, beta cynthia. Patient refuses to take ASA due to increased bruising. -ECG with no ischemic changes. -Echo as above. -Will continue to monitor. Qualifiers: Coronary Disease-Associated Artery/Lesion type: unspecified vessel or lesion type [place] vs. transplanted heart: unspecified whether [place] or transplanted heart Associated angina: without angina Qualified Code(s): I25.10 - Atherosclerotic heart disease of [place] coronary artery without angina pectoris (5) Elevated troponin Current Visit: Yes Status: Acute Per cardiology: -ELevated troponin 0.14, 0.15, 0.15. -Troponins flat and adynamic in the setting of atrial flutter with RVR. -Denies current chest pain. -Echo as above. -Known CAD, not ammednable to PCI. -Do not suspect NSTEMI, suspect demand ischemia related to atrial flutter with RVR. No cardiac rehab warranted at this time. (6) Cardiomyopathy Current Visit: Yes Status: Acute Per cardiology: -New cardiomyopathy with LVEF 35-40%, previous 55%. -Echo as above. -On lasix. -On beta cynthia and wilton inhibitor. -recommend repeating echoacrdiogram in 3 months. Qualifiers: Cardiomyopathy type: unspecified Qualified Code(s): I42.9 - Cardiomyopathy , unspecified Discussion w patient/family: The assessment and plan as outlined above was discussed with the patient who expressed understanding and agreement. All questions were answered. Thank you for involving us in the care of your patient. Please call with any questions. Discussed and reviewed with . Subjective Principal diagnosis: atrial flutter with RVR Interval history: Patient states over the past couple of weeks he has had worsening shortness of breath and chest pain. Patient has chronic angina, but states this pain was worse. Patient was admitted to [facility] and noted to be in atrial flutter with RVR. Patient declines history of atrial fibrillation/flutter. Patient denies current chest pain, palpitations, or fluttering. Patient denies bleeding or blood loss. Reports has now finished chemotherapy for bladder CA. Patient states breathing has improved today. Patient states swelling has improved today also. Patient states he feels ok today, however he states he is getting anxious to go home. Objective Vital Signs, Last 4 Hours Temp Pulse Resp BP Pulse Ox 10/21/16 10:05 102 16 94/67 92 10/21/16 10:00 120 16 99/60 94 10/21/16 09:55 101 16 82/70 94 10/21/16 08:00 122 10/21/16 07:41 16 95 10/21/16 07:29 98 F 122 16 85/67 95 General: Conversant, No Apparent Distress HEENT: Atraumatic, Normocephaly, Mucus Membranes Moist Neck: No JVD, Normal carotid pulses Cardiac: Other (Irregularly, irregular. Systolic murmur noted. ) Lungs: Normal Breath Sounds, No Wheeze, Rales, Rhonchi Neuro: Alert and responsive, No focal deficits noted Abdomen: Soft, Non-Tender Skin: No rashes noted on visualized skin Musculoskeletal: No Chest Wall Tenderness Extremities: No Clubbing, No Cyanosis, Normal Pulses, Other (Mild left lower extremity pedal edema, non-pitting. ) Results 10/21/16 04:55 10/21/16 04:55 Lab Results Active Medications Acetaminophen (Tylenol) 650 mg PO Q6HR PRN PRN Reason: Mild Pain (1-3) Stop: 04/18/17 15:13 Acetaminophen/Hydrocodone Bitart ([place] 5-325 Mg) 1 tab PO Q4HR PRN PRN Reason: Moderate Pain (4-6) Stop: 04/18/17 15:13 Ascorbic Acid (Vitamin C) 500 mg PO DAILY [facility] Stop: 04/19/17 09:01 Last Admin: 10/21/16 07:45 Dose: 500 mg Atorvastatin Calcium (Lipitor) 80 mg PO HS [facility] Stop: 04/18/17 21:01 Last Admin: 10/20/16 20:43 Dose: 80 mg Beclomethasone Dipropionate (Qvar 80 Mcg) 2 puff IH BID [facility] PRN Reason: Protocol Stop: 04/18/17 21:01 Last Admin: 10/21/16 07:41 Dose: 2 puff Clopidogrel Bisulfate (Plavix) 75 mg PO DAILY [facility] Stop: 04/19/17 09:01 Last Admin: 10/21/16 07:45 Dose: 75 mg Digoxin (Lanoxin) 0.125 mg PO DAILY [facility] Stop: 04/21/17 09:01 Last Admin: 10/21/16 07:46 Dose: 0.125 mg Amiodarone HCl/Dextrose (Amiodarone Drip Premix 360mg/200ml) 360 mg in 200 mls @ 33.333 mls/hr IVC ONCE ONE PRN Reason: 1 MG/MIN Stop: 10/21/16 14:50 Last Admin: 10/21/16 09:54 Dose: 1 mg/min, 33.333 mls/hr Amiodarone HCl/Dextrose (Amiodarone Drip Premix 360mg/200ml) 360 mg in 200 mls @ 16.667 mls/hr IVC CONT [facility] PRN Reason: 0.5 MG/MIN Stop: 04/22/17 09:01 Ipratropium [place] (Atrovent Neb) 0.5 mg AER [id number] [facility] Stop: 04/19/17 16:01 Last Admin: 10/21/16 07:39 Dose: 0.5 mg Levalbuterol HCl (Xopenex) 1.25 mg IH Q2H PRN PRN Reason: SOB/WHEEZE Stop: 04/18/17 16:01 Levalbuterol HCl (Xopenex) 1.25 mg AER [id number] [facility] Stop: 04/19/17 16:01 Last Admin: 10/21/16 07:39 Dose: 1.25 mg Lisinopril (Zestril) 2.5 mg PO DAILY [facility] PRN Reason: Protocol Stop: 04/19/17 12:01 Last Admin: 10/21/16 07:46 Dose: Not Given Metoprolol Succinate (Toprol Xl) 37.5 mg PO BID [facility] Stop: 04/21/17 21:01 Last Admin: 10/21/16 07:58 Dose: Not Given Metoprolol Tartrate (Lopressor) 5 mg IVP Q6H PRN PRN Reason: HR>100 AND SBP>110 Stop: 04/19/17 14:55 Morphine Sulfate (Morphine Sulfate) 2 mg IVP Q4HR PRN PRN Reason: Severe Pain (7-10) Stop: 04/18/17 15:13 Multivitamins/Calcium (Thera M Plus) 1 tab PO DAILY [facility] Stop: 04/19/17 09:01 Last Admin: 10/21/16 07:45 Dose: 1 tab Naloxone HCl (Narcan) 0.4 mg IVP Q2MIN PRN PRN Reason: Opioid Reversal Stop: 04/18/17 15:13 Nitroglycerin (Nitroglycerin) 0.4 mg SL AD PRN PRN Reason: Chest Pain Stop: 04/18/17 15:35 Oxybutynin Chloride (Ditropan) 5 mg PO DAILY [facility] PRN Reason: Protocol Stop: 04/19/17 09:01 Last Admin: 10/21/16 07:45 Dose: 5 mg Pantoprazole Sodium (Protonix) 40 mg IVP DAILY [facility] Stop: 04/19/17 09:01 Last Admin: 10/21/16 07:44 Dose: 40 mg Warfarin Sodium (Coumadin Perpt) 1 each PO DAILY@1800 PRN PRN Reason: SEE COMMENTS Stop: 04/19/17 18:01 Laboratory Tests 10/18/16 10/21/16 10/21/16 11:25 04:55 04:55 Hgb 14.1 INR 2.7 D Potassium Creatinine Magnesium B-Natriuretic Peptide TSH 1.360 10/21/16 10/21/16 04:55 04:55 Hgb INR Potassium 3.8 Creatinine 0.94 Magnesium 1.6 B-Natriuretic Peptide 440 H TSH - Imaging and Cardiology Chest Xray: pending, report reviewed Echo: report reviewed - EKG Interpretation EKG results cardiology: other (Telemetry reviewed with average HR 108, atrial flutter. PVCs and couplets noted.) - VTE Documentation of Mechanical Device: Graduated compression elastic hosiery Consult Discharge Plan - Plan Referrals: Lisa Quiñones [employer] [Advanced Practice Nurse] - 10/26/16 9:00 am
--- NOTE | 2016-10-21 13:53 | Internal Med Progress Note ---
Date of Encounter: 10/21/16 Time of Encounter: 11:05 - Assessment and plan (1) Acute systolic congestive heart failure, NYHA class 2 Current Visit: Yes Status: Acute Assessment and plan: Echo 10/18/16 with LVEF 35-40%, mildly dilated left atrium, restricted motion of posterior mitral valve leaflet, severe mitral regurgitation, mid inferior, basal inferior, mid anterior lateral, basal anterior lateral, mid inferior lateral, and basal inferior lateral brooks hypokinetic. clinically improving started Lasix 40mg PO BID today closely monitor I/OS, daily weights, fluid restriction diet cardiology input appreciated (2) Atrial flutter with rapid ventricular response Current Visit: Yes Status: Acute Assessment and plan: Rate poorly controlled continue BB, digoxin added amiodarone gtt by cardiology cardiology follow up appreciated INR within therapeutic range d/c lovenox SQ continue coumadin Goal INR: 2-3 Pharmacy to dose coumadin (3) COPD (chronic obstructive pulmonary disease) Current Visit: Yes Status: Chronic Assessment and plan: will continue home nebulizer treatments not in acute exacerbation Qualifiers: COPD type: COPD with acute exacerbation Qualified Code(s): J44.1 - Chronic obstructive pulmonary disease with (acute) exacerbation (4) HLD (hyperlipidemia) Current Visit: Yes Status: Chronic Assessment and plan: continue home meds Qualifiers: Hyperlipidemia type: unspecified Qualified Code(s): E78.5 - Hyperlipidemia , unspecified (5) Severe mitral regurgitation Current Visit: Yes Status: Acute (6) CAD (coronary artery disease) Current Visit: Yes Status: Chronic Assessment and plan: no signs of angina present at this time will continue home meds Qualifiers: Coronary Disease-Associated Artery/Lesion type: unspecified vessel or lesion type [place] vs. transplanted heart: unspecified whether [place] or transplanted heart Associated angina: without angina Qualified Code(s): I25.10 - Atherosclerotic heart disease of [place] coronary artery without angina pectoris (7) DVT prophylaxis Current Visit: Yes Status: Acute Assessment and plan: Heparin gtt (8) Electrolyte abnormality Current Visit: Yes Status: Resolved - Subjective Interval history: Patient seen and examined with present at bedside. Resting comfortably in bed and denies any discomfort. Noted to be hypotensive and tachycardic this morning. Cardiology follow up noted, patient started on amiodarone drip. - Constitutional Vitals: Temp Pulse Resp BP Pulse Ox 98 F 100 18 89/67 97 10/21/16 07:29 10/21/16 10:35 10/21/16 11:16 10/21/16 10:35 10/21/16 11:16 General appearance: Present: cooperative, A&O X 3, pleasant, no acute distress, obese, answers questions appropriately - Head Head exam: Present: atraumatic, normocephalic - Eye Eye exam: Present: normal appearance, conjuntiva pink, sclera anicteric - Respiratory Respiratory exam: Absent: respiratory distress, wheezes - Cardiovascular Cardiovascular exam: Present: irregular rhythm, +S1, +S2, tachycardia - GI/Abdominal GI/Abdominal exam: Present: normal bowel sounds, soft, no peritoneal signs. Absent: distended, tenderness - Extremities Exam Extremities exam: Present: warm, radial pulses palpable and symetrical. Absent : calf tenderness, pedal edema - Neurological Exam Neurological exam: Present: alert, oriented X3 - Psychiatric Psychiatric exam: Present: normal affect, normal mood Internal Medicine: Result - Labs CBC & Chem 7: 10/21/16 04:55 10/21/16 04:55 Labs: Short CBC 10/21/16 Range/Units 04:55 WBC 8.6 (4.3-11.1) K/mcL Hgb 14.1 (12.9-16.9) g/dL Hct 42.7 (37.5-50.1) % Plt Count 191 (140-400) K/mcL Neutrophils # 5.1 (1.6-8.9) K/mcL BMP 10/21/16 04:55 Sodium 139 Potassium 3.8 Chloride 103 Carbon Dioxide 27 BUN 16 Creatinine 0.94 Glucose 101 H Calcium 9.1 - ABG Interpretation ABG results: PT/INR, D-dimer PT 29.5 Seconds (9.4-12.1) H D 10/21/16 04:55 - VTE Documentation of Mechanical Device: Graduated compression elastic hosiery Consult Discharge Plan - Plan Referrals: Lisa Quiñones CNP [Advanced Practice Nurse] - 10/26/16 9:00 am
[2016-10-21] MEDS ORDERED: *HR* Warfarin 2.5 MG TABLET PO ONE (15:06)
[2016-10-21] MEDS: Amiodarone Premix 360 MG/200 ML BAG IVC SCH (16:09)
[2016-10-21] MEDS ORDERED: Furosemide 40 MG TABLET PO SCH (17:00)
[2016-10-22 04:07] LABS: Basophils # 0.1 K/mcL (0.0-0.2); Basophils % 0.9 %; Eosinophils # 0.4 K/mcL (0.0-0.6); Eosinophils % 6.1 %; Hematocrit 40.4 % (37.5-50.1); Hemoglobin 13.5 g/dL (12.9-16.9); Immature Granulocytes % 0.3 % (0-4); Lymphocytes # 1.7 K/mcL (0.6-4.6); Lymphocytes % 23.9 %; Mean Corpuscular HGB Conc 33.4 g/dL (31.6-35.5); Mean Corpuscular Hemoglobin 31.1 pg (28.0-33.3); Mean Corpuscular Volume 93.1 fL (83.0-100.0); Mean Platelet Volume 10.3 fL (9.4-12.4); Monocytes # 0.8 K/mcL (0.0-1.3); Monocytes % 10.8 %; Neutrophils # 4.1 K/mcL (1.6-8.9); Platelet Count 189 K/mcL (140-400); Red Blood Count 4.34 M/mcL (4.19-5.50); Red Cell Distribution Width 12.7 % (11.5-14.5)
[2016-10-22 04:11] LABS: INR 3.5; Prothrombin Time 39.7 Seconds (9.4-12.1)
[2016-10-22 04:19] LABS: BUN/Creatinine Ratio 18 (6-26); Blood Urea Nitrogen 14 mg/dL (8-26); Carbon Dioxide 27 mEq/L (19-29); Chloride 103 mEq/L (98-109); Glucose 101 mg/dL (70-99); Magnesium 1.7 mg/dL (1.6-2.6); Osmolality,Calculated 287 (280-300); Phosphorous 3.7 mg/dL (2.3-4.7); Potassium 3.9 mEq/L (3.5-4.5); Sodium 138 mEq/L (136-145); eGFR For African Americans > 60 (> 60); eGFR For Non-African Americans > 60 (> 60)
[2016-10-22] MEDS: Ipratropium Neb 0.5 MG NEBULIZER AER SCH ×5 (04:23→20:09)
[2016-10-22] MEDS: Levalbuterol Neb 1.25 MG/3 ML AER SCH ×5 (04:23→20:09)
[2016-10-22] MEDS: Amiodarone Premix 360 MG/200 ML BAG IVC SCH (04:28)
[2016-10-22] MEDS: Beclomethasone 80mcg MDI IH SCH ×2 (07:58→20:09)
[2016-10-22] MEDS: *HR* Digoxin 0.125 MG TABLET PO SCH (08:15)
[2016-10-22] MEDS: Metoprolol XL (24 HR) Succ 25 MG TAB.ER.24H PO SCH ×2 (08:16→21:18)
[2016-10-22] MEDS: Multivit/Ca/Min/Fe/FA 1 TAB TABLET PO SCH (08:16)
[2016-10-22] MEDS: Pantoprazole 40 MG VIAL IVP SCH (08:16)
[2016-10-22] MEDS: Ascorbic Acid 500 MG TABLET PO SCH (08:17)
--- NOTE | 2016-10-22 10:03 | Cardiology Progress Note ---
Date of Encounter: 10/22/16 Time of Encounter: 08:30 Assessment and Plan (1) Atrial flutter with rapid ventricular response Current Visit: Yes Status: Acute Per cardiology: -New onset atrial flutter with RVR. -ECG with a.flutter, HR 122. -Telemetry reviewed with average HR previous 12 hours noted to be 86, atrial flutter. -Echo 10/18/16 with LVEF 35-40%, mildly dilated left atrium, restricted motion of posterior mitral valve leaflet, severe mitral regurgitation, mid inferior, basal inferior, mid anterior lateral, basal anterior lateral, mid inferior lateral, and basal inferior lateral brooks hypokinetic. -Fcjqa1hwfn score 5 (age, HTN, CHF, vascular disease). Currently on heparin drip. 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 I spoke at length with patient and regarding increased risk of stroke if not on anticoagulation and need for coumadin due to valvular heart disease. Patient agreeable for coumadin. -On coumadin with INR today 3.5. -No cardizem due to cardiomyopathy. -On beta cynthia, digoxin and amiodarone drip. -BPs 90-100s systolic. -Per discussion with , will start amiodarone 400mg BID for today, will switch to 200mg BID. Will stop amiodarone drip. -WIll continue to monitor BP and HR. -Patient re-evaluated after oral amiodarone. Patient's average HR previous 8 hours noted to be 92. Patient will start amiodarone 400 daily tomorrow for one week then 200mg daily. Cardiology will sign off and will follow in outpatient setting. FOllow up set. (2) Acute systolic congestive heart failure, NYHA class 2 Current Visit: Yes Status: Acute Per cardiology: -Echo as above with LVEF 35-40%. -Previous echo with EF 55%. -Left leg edema, of note patient reports left leg is usually more swollen due to vein harvesting from CABG. Patient states this amount of swelling today is about his normal. -Net negative 3500ml this admission. -Chest CT with bilateral pleural effusions right greater than left. -Of note, current weight 211.9 pounds, per office records weight 05/2016 225 pounds. -BNP 381 on admission, Today 440. -CHest x-rsy 10/21 with no overt heart failure. -Agree with strict i/os, daily weights, and fluid restriction. -CHF education given to patient and family. -BPs 90-100s systolic currently. -Will continue to monitor (3) Severe mitral regurgitation Current Visit: Yes Status: Acute Per cardiology: -Severe MR per echocardiogram. -Discussed at length with patient family regarding MR. Patient states at this time, he does not want further work up for possible intervention for MR. Patient states he wishes to follow up in outpatient clinic and will make a decision regarding further work up for mitral valve. in agreement with patient's decision. -Will continue to monitor in outpatient setting. (4) CAD (coronary artery disease) Current Visit: Yes Status: Chronic Per cardiology: -Known CAD with CABG x3 1997. -[facility] 11/30/15 with 100% stenosis proximal LAD, 100% OM1, 100% proximal RCA, collaterals from LAD, CARD to LAD, SVG to OM occluded, and SVG to PDA occluded. Cath films reviewed with , who states lesions are not ammendable to PCI. -Patient has chronic chest pain. -Reports increased chest pain with atrial flutter with RVR. -Denies current chest pain. -ON plavix, statin, beta cynthia. Patient refuses to take ASA due to increased bruising. -ECG with no ischemic changes. -Echo as above. -Will continue to monitor. Qualifiers: Coronary Disease-Associated Artery/Lesion type: unspecified vessel or lesion type [place] vs. transplanted heart: unspecified whether [place] or transplanted heart Associated angina: without angina Qualified Code(s): I25.10 - Atherosclerotic heart disease of [place] coronary artery without angina pectoris (5) Elevated troponin Current Visit: Yes Status: Acute Per cardiology: -ELevated troponin 0.14, 0.15, 0.15. -Troponins flat and adynamic in the setting of atrial flutter with RVR. -Denies current chest pain. -Echo as above. -Known CAD, not ammednable to PCI. -Do not suspect NSTEMI, suspect demand ischemia related to atrial flutter with RVR. No cardiac rehab warranted at this time. (6) Cardiomyopathy Current Visit: Yes Status: Acute Per cardiology: -New cardiomyopathy with LVEF 35-40%, previous 55%. -Echo as above. -On beta cynthia and wilton inhibitor. -recommend repeating echoacrdiogram in 3 months. Qualifiers: Cardiomyopathy type: unspecified Qualified Code(s): I42.9 - Cardiomyopathy , unspecified Discussion w patient/family: The assessment and plan as outlined above was discussed with the patient who expressed understanding and agreement. All questions were answered. Thank you for involving us in the care of your patient. Please call with any questions. Discussed and reviewed with Subjective Principal diagnosis: atrial flutter with RVR Interval history: Patient states over the past couple of weeks he has had worsening shortness of breath and chest pain. Patient has chronic angina, but states this pain was worse. Patient was admitted to [facility] and noted to be in atrial flutter with RVR. Patient declines history of atrial fibrillation/flutter. Patient denies current chest pain, palpitations, or fluttering. Patient denies bleeding or blood loss. Reports has now finished chemotherapy for bladder CA. Patient states breathing has improved today. Patient states swelling has improved today also. Patient states he feels good today. Objective Vital Signs, Last 4 Hours Temp Pulse Resp BP Pulse Ox 10/22/16 08:15 80 10/22/16 07:58 24 96 10/22/16 07:15 97.9 F 84 24 109/71 94 General: Conversant, No Apparent Distress HEENT: Atraumatic, Normocephaly, Mucus Membranes Moist Neck: No JVD, Normal carotid pulses Cardiac: Other (Irregularly, irregular. ) Lungs: Normal Breath Sounds, No Wheeze, Rales, Rhonchi Neuro: Alert and responsive, No focal deficits noted Abdomen: Soft, Non-Tender Skin: No rashes noted on visualized skin Musculoskeletal: No Chest Wall Tenderness Extremities: No Clubbing, No Cyanosis, Normal Pulses, Other (Mild left lower extremity pedal edema. ) Results 10/22/16 03:18 10/22/16 03:18 Lab Results Impressions Chest X-Ray 10/21/16 08:24 IMPRESSION: Stable cardiomegaly without overt failure. Increased elevation of the left hemidiaphragm with dependent opacification, likely atelectasis. D/ / Darion Longo MD / Darion Longo MD Interpreting Provider: Darion Longo MD Active Medications Acetaminophen (Tylenol) 650 mg PO Q6HR PRN PRN Reason: Mild Pain (1-3) Stop: 04/18/17 15:13 Acetaminophen/Hydrocodone Bitart ([place] 5-325 Mg) 1 tab PO Q4HR PRN PRN Reason: Moderate Pain (4-6) Stop: 04/18/17 15:13 Amiodarone HCl (Cordarone) 400 mg PO BID [facility] Stop: 04/23/17 10:01 Ascorbic Acid (Vitamin C) 500 mg PO DAILY [facility] Stop: 04/19/17 09:01 Last Admin: 10/22/16 08:17 Dose: 500 mg Atorvastatin Calcium (Lipitor) 80 mg PO HS [facility] Stop: 04/18/17 21:01 Last Admin: 10/21/16 21:33 Dose: 80 mg Beclomethasone Dipropionate (Qvar 80 Mcg) 2 puff IH BID [facility] PRN Reason: Protocol Stop: 04/18/17 21:01 Last Admin: 10/22/16 07:58 Dose: 2 puff Clopidogrel Bisulfate (Plavix) 75 mg PO DAILY [facility] Stop: 04/19/17 09:01 Last Admin: 10/22/16 08:15 Dose: 75 mg Digoxin (Lanoxin) 0.125 mg PO DAILY [facility] Stop: 04/21/17 09:01 Last Admin: 10/22/16 08:15 Dose: 0.125 mg Amiodarone HCl/Dextrose (Amiodarone Drip Premix 360mg/200ml) 360 mg in 200 mls @ 16.667 mls/hr IVC CONT [facility] PRN Reason: 0.5 MG/MIN Stop: 04/22/17 09:01 Last Admin: 10/22/16 04:28 Dose: 0.5 mg/min, 16.667 mls/hr Ipratropium [place] (Atrovent Neb) 0.5 mg AER [id number] [facility] Stop: 04/19/17 16:01 Last Admin: 10/22/16 07:57 Dose: 0.5 mg Levalbuterol HCl (Xopenex) 1.25 mg IH Q2H PRN PRN Reason: SOB/WHEEZE Stop: 04/18/17 16:01 Levalbuterol HCl (Xopenex) 1.25 mg AER [id number] [facility] Stop: 04/19/17 16:01 Last Admin: 10/22/16 07:57 Dose: 1.25 mg Lisinopril (Zestril) 2.5 mg PO DAILY [facility] PRN Reason: Protocol Stop: 04/19/17 12:01 Last Admin: 10/22/16 08:18 Dose: 2.5 mg Metoprolol Succinate (Toprol Xl) 37.5 mg PO BID [facility] Stop: 04/21/17 21:01 Last Admin: 10/22/16 08:16 Dose: 37.5 mg Metoprolol Tartrate (Lopressor) 5 mg IVP Q6H PRN PRN Reason: HR>100 AND SBP>110 Stop: 04/19/17 14:55 Morphine Sulfate (Morphine Sulfate) 2 mg IVP Q4HR PRN PRN Reason: Severe Pain (7-10) Stop: 04/18/17 15:13 Multivitamins/Calcium (Thera M Plus) 1 tab PO DAILY [facility] Stop: 04/19/17 09:01 Last Admin: 10/22/16 08:16 Dose: 1 tab Naloxone HCl (Narcan) 0.4 mg IVP Q2MIN PRN PRN Reason: Opioid Reversal Stop: 04/18/17 15:13 Nitroglycerin (Nitroglycerin) 0.4 mg SL AD PRN PRN Reason: Chest Pain Stop: 04/18/17 15:35 Oxybutynin Chloride (Ditropan) 5 mg PO DAILY [facility] PRN Reason: Protocol Stop: 04/19/17 09:01 Last Admin: 10/22/16 08:15 Dose: 5 mg Pantoprazole Sodium (Protonix) 40 mg IVP DAILY [facility] Stop: 04/19/17 09:01 Last Admin: 10/22/16 08:16 Dose: 40 mg Warfarin Sodium (Coumadin Perpt) 1 each PO DAILY@1800 PRN PRN Reason: SEE COMMENTS Stop: 04/19/17 18:01 Laboratory Tests 10/22/16 10/22/16 10/22/16 03:18 03:18 03:18 Hgb 13.5 INR 3.5 Creatinine 0.80 Magnesium 1.7 - Imaging and Cardiology Chest Xray: report reviewed Echo: report reviewed Cardiac cath: report reviewed - EKG Interpretation EKG results cardiology: other (Telemetry reviewed with average HR previous 12 hours noted to be 86, atrial flutter. PVCs and couplet PVCs noted.) - VTE Documentation of Mechanical Device: Graduated compression elastic hosiery Consult Discharge Plan - Plan Referrals: Lisa Quiñones CNP [Advanced Practice Nurse] - 10/26/16 9:00 am
[2016-10-22] MEDS: *HR* Amiodarone 200 MG TABLET PO SCH ×2 (10:15→21:17)
--- NOTE | 2016-10-22 10:29 | Internal Med Progress Note ---
Date of Encounter: 10/22/16 Time of Encounter: 09:45 - Assessment and plan (1) Acute systolic congestive heart failure, NYHA class 2 Current Visit: Yes Status: Acute Assessment and plan: Echo 10/18/16 with LVEF 35-40%, mildly dilated left atrium, restricted motion of posterior mitral valve leaflet, severe mitral regurgitation, mid inferior, basal inferior, mid anterior lateral, basal anterior lateral, mid inferior lateral, and basal inferior lateral brooks hypokinetic. clinically improving continue Lasix 40mg PO BID today closely monitor I/OS, daily weights, fluid restriction diet cardiology input appreciated (2) Atrial flutter with rapid ventricular response Current Visit: Yes Status: Acute Assessment and plan: Rate better controlled will d/c amiodarone drip and start PO amiodarone continue BB, digoxin cardiology follow up appreciated INR noted to be in supratherapeutic range will hold today's coumadin dose Goal INR: 2-3 Pharmacy to dose coumadin Patient encouraged to get out of bed to chair and ambulate as tolerated (3) COPD (chronic obstructive pulmonary disease) Current Visit: Yes Status: Chronic Assessment and plan: will continue home nebulizer treatments not in acute exacerbation Qualifiers: COPD type: COPD with acute exacerbation Qualified Code(s): J44.1 - Chronic obstructive pulmonary disease with (acute) exacerbation (4) HLD (hyperlipidemia) Current Visit: Yes Status: Chronic Assessment and plan: continue home meds Qualifiers: Hyperlipidemia type: unspecified Qualified Code(s): E78.5 - Hyperlipidemia , unspecified (5) Severe mitral regurgitation Current Visit: Yes Status: Acute (6) CAD (coronary artery disease) Current Visit: Yes Status: Chronic Assessment and plan: no signs of angina present at this time will continue home meds Qualifiers: Coronary Disease-Associated Artery/Lesion type: unspecified vessel or lesion type [place] vs. transplanted heart: unspecified whether [place] or transplanted heart Associated angina: without angina Qualified Code(s): I25.10 - Atherosclerotic heart disease of [place] coronary artery without angina pectoris (7) DVT prophylaxis Current Visit: Yes Status: Acute Assessment and plan: anticoagulated with coumadin (8) Electrolyte abnormality Current Visit: Yes Status: Resolved - Subjective Interval history: Patient seen and examined at bedside. Resting in bed and reports of feeling better. HR better controlled with Amiodarone gtt, will d/c drip and start PO amiodarone today.Will monitor HR for one more day, if remains stable, will d/c in am. - Constitutional Vitals: Temp Pulse Resp BP Pulse Ox 97.9 F 114 24 96/82 96 10/22/16 07:15 10/22/16 10:25 10/22/16 07:58 10/22/16 10:25 10/22/16 07:58 General appearance: Present: cooperative, A&O X 3, pleasant, no acute distress, obese, answers questions appropriately - Head Head exam: Present: atraumatic, normocephalic - Eye Eye exam: Present: conjuntiva pink, sclera anicteric - Respiratory Respiratory exam: Present: CTAB. Absent: respiratory distress, wheezes - Cardiovascular Cardiovascular exam: Present: irregular rhythm, +S1, +S2 - GI/Abdominal GI/Abdominal exam: Present: normal bowel sounds, soft, no peritoneal signs. Absent: distended, tenderness - Extremities Exam Extremities exam: Present: warm, radial pulses palpable and symetrical. Absent : calf tenderness, pedal edema, tenderness - Neurological Exam Neurological exam: Present: alert, oriented X3 - Psychiatric Psychiatric exam: Present: normal affect, normal mood Internal Medicine: Result - Labs CBC & Chem 7: 10/22/16 03:18 10/22/16 03:18 Labs: Short CBC 10/22/16 Range/Units 03:18 WBC 7.0 (4.3-11.1) K/mcL Hgb 13.5 (12.9-16.9) g/dL Hct 40.4 (37.5-50.1) % Plt Count 189 (140-400) K/mcL Neutrophils # 4.1 (1.6-8.9) K/mcL BMP 10/22/16 03:18 Sodium 138 Potassium 3.9 Chloride 103 Carbon Dioxide 27 BUN 14 Creatinine 0.80 Glucose 101 H Calcium 9.0 - ABG Interpretation ABG results: PT/INR, D-dimer PT 39.7 Seconds (9.4-12.1) H 10/22/16 03:18 - Impressions Impressions Chest X-Ray 10/21/16 08:24 IMPRESSION: Stable cardiomegaly without overt failure. Increased elevation of the left hemidiaphragm with dependent opacification, likely atelectasis. D/ / Darion Longo MD / Darion Longo MD Interpreting Provider: Darion Longo MD - VTE Documentation of Mechanical Device: Graduated compression elastic hosiery Consult Discharge Plan - Plan Referrals: Lisa Quiñones CNP [Advanced Practice Nurse] - 10/26/16 9:00 am
[2016-10-23] MEDS: Levalbuterol Neb 1.25 MG/3 ML AER SCH ×3 (00:16→07:30)
[2016-10-23] MEDS: Ipratropium Neb 0.5 MG NEBULIZER AER SCH ×3 (00:16→07:29)
[2016-10-23 04:39] LABS: Basophils % 0.6 %; Eosinophils # 0.4 K/mcL (0.0-0.6); Eosinophils % 6.3 %; Hematocrit 39.8 % (37.5-50.1); Hemoglobin 13.5 g/dL (12.9-16.9); Immature Granulocytes % 0.3 % (0-4); Lymphocytes # 1.7 K/mcL (0.6-4.6); Mean Corpuscular HGB Conc 33.9 g/dL (31.6-35.5); Mean Corpuscular Hemoglobin 31.6 pg (28.0-33.3); Mean Corpuscular Volume 93.2 fL (83.0-100.0); Mean Platelet Volume 10.4 fL (9.4-12.4); Monocytes # 0.6 K/mcL (0.0-1.3); Monocytes % 9.2 %; Platelet Count 192 K/mcL (140-400); Red Blood Count 4.27 M/mcL (4.19-5.50); Red Cell Distribution Width 12.9 % (11.5-14.5); Segmented Neutrophils % 58.6 %
[2016-10-23 04:44] LABS: INR 2.5; Prothrombin Time 28.1 Seconds (9.4-12.1)
[2016-10-23 04:52] LABS: BUN/Creatinine Ratio 19 (6-26); Blood Urea Nitrogen 16 mg/dL (8-26); Carbon Dioxide 27 mEq/L (19-29); Chloride 105 mEq/L (98-109); Glucose 97 mg/dL (70-99); Magnesium 1.8 mg/dL (1.6-2.6); Osmolality,Calculated 289 (280-300); Phosphorous 3.7 mg/dL (2.3-4.7); Potassium 4.1 mEq/L (3.5-4.5); Sodium 139 mEq/L (136-145); eGFR For African Americans > 60 (> 60); eGFR For Non-African Americans > 60 (> 60)
[2016-10-23] MEDS: Beclomethasone 80mcg MDI IH SCH (07:29)
[2016-10-23 08:07] VITALS: BP 94/59
[2016-10-23] MEDS: Ascorbic Acid 500 MG TABLET PO SCH (08:20)
[2016-10-23] MEDS: Multivit/Ca/Min/Fe/FA 1 TAB TABLET PO SCH (08:20)
[2016-10-23] MEDS: Metoprolol XL (24 HR) Succ 25 MG TAB.ER.24H PO SCH (08:20)
[2016-10-23] MEDS: *HR* Digoxin 0.125 MG TABLET PO SCH (08:21)
[2016-10-23] MEDS ORDERED: *HR* Amiodarone 200 MG TABLET PO SCH (09:00)
--- NOTE | 2016-10-23 10:24 | Discharge Summary ---
Date of Encounter: 10/23/16 Time of Encounter: 10:18 - Discharge Diagnosis (1) Acute systolic congestive heart failure Priority: Primary Status: Acute (2) Atrial flutter with rapid ventricular response Priority: Primary Status: Acute - Discharge Medications Prescriptions: Amiodarone [Cordarone] 400 mg PO DAILY #90 tablet Digoxin [Lanoxin] 0.125 mg PO DAILY #30 tablet Lisinopril [Zestril] 2.5 mg PO DAILY #30 tablet Metoprolol XL (24 HR) Succ [Toprol Xl] 37.5 mg PO BID #60 tab.er.24h Warfarin perPT [Coumadin perPT] 2.5 mg PO DAILY@1800 #30 each Home Medications: Atorvastatin Calcium [Lipitor] 80 mg PO HS 11/30/15 [History] Clopidogrel [Plavix] 75 mg PO DAILY 11/30/15 [History] Ezetimibe [Zetia] 10 mg PO HS 11/30/15 [History] Oxybutynin [Ditropan] 5 mg PO DAILY 11/30/15 [History] Roflumilast [Daliresp] 500 mcg PO DAILY 11/30/15 [History] Ascorbate Calcium [Vitamin C] 500 mg PO DAILY 10/17/16 [History] Beclomethasone Diprop 80mcg [QVAR 80 mcg] 2 puff IH BID 10/17/16 [History] Multivitamin [Multi-Day Vitamins] 1 tab PO DAILY 10/17/16 [History] Nitroglycerin [Nitrostat] 0.4 mg SL AD PRN 10/17/16 [History] Oxygen 2 l NS HS 10/17/16 [History] Umeclidinium Brm/Vilanterol Tr [Anoro Ellipta 62.5-25 Mcg INH] 1 puff IH DAILY 10/17/16 [History] Vitamin A 10,000 unit PO DAILY 10/17/16 [History] Vitamin E 100 unit PO DAILY 10/17/16 [History] Amiodarone [Cordarone] 400 mg PO DAILY #90 tablet 10/23/16 [Rx] Digoxin [Lanoxin] 0.125 mg PO DAILY #30 tablet 10/23/16 [Rx] Lisinopril [Zestril] 2.5 mg PO DAILY #30 tablet 10/23/16 [Rx] Metoprolol XL (24 HR) Succ [Toprol Xl] 37.5 mg PO BID #60 tab.er.24h 10/23/16 [ Rx] Warfarin perPT [Coumadin perPT] 2.5 mg PO DAILY@1800 #30 each 10/23/16 [Rx] Allergies/Adverse Reactions: Allergies No Known Allergies Allergy (Verified 11/30/15 10:32) Date of admission: 10/17/16 15:12 Primary care physician: Colton Price MD Consults: 10/17/16 15:54 Consult to Cardiology [CONS] Routine Comment: Consulting Provider: Cardiology Trini Reason for Consult: aflutter Call Completed: Yes Discharging clinician: Gloria Hernandez Anticipated date of discharge: 10/23/16 - Patient Status Disposition: Home, Self-Care Condition: Fair Functional capacity at discharge: independent ambulation Overall status at discharge: patient is back to baseline - Discharge Instructions Instructions: Warfarin (By mouth), Heart Failure (DC), Atrial Flutter (DC) Follow Up With: ANTI, COAGULATION [Other] - 10/25/16 3:00 pm (PLEASE BRING YOUR BOTTLE OF WAR[place] WITH YOU TO YOUR APPOINTMENT, A LIST OF CURRENTS MEDS.) Lisa Quiñones CNP [Advanced Practice Nurse] - 10/26/16 9:00 am Yordan Kumar MD [Partnered Physician] - () Interval History: Mr. Velazquez is a 76 year old male with a relevant past medical history of HTN, hyperlipidemia, CAD s/p CABG x3 1997, COPD, skin CA, bladder cancer. Patient states over the past couple of weeks he has had worsening shortness of breath and chest pain. Patient has chronic angina, but states this pain was worse. Patient was admitted to [facility] and noted to be in atrial flutter with RVR. Patient declines history of atrial fibrillation/flutter. Cardiology has been consulted. -New onset atrial flutter with RVR. -ECG with a.flutter, HR 122. -Echo 10/18/16 with LVEF 35-40%, mildly dilated left atrium, restricted motion of posterior mitral valve leaflet, severe mitral regurgitation, mid inferior, basal inferior, mid anterior lateral, basal anterior lateral, mid inferior lateral, and basal inferior lateral brooks hypokinetic. -[id number] score 5 (age, HTN, CHF, vascular disease). started on heparin drip. Due to severe MR, patient will need coumadin for residential anticoagulation.IT was discussed with patient and regarding increased risk of stroke if not on anticoagulation and need for coumadin due to valvular heart disease. Patient agreeable for coumadin. -On coumadin with INR today 2.5 -No cardizem due to cardiomyopathy. -On beta cynthia, digoxin and was started on amiodarone. Patient to be dc on amio 400 daily po for 1 week followed by 200 mg po daily. he will f/u as OP with cardiology. Hospital course: Mr. Velazquez is a 76 year old male - Time Spent with Patient Total time spent providing and/or coordinating discharge services: - Constitutional Vitals: Temp Pulse Resp BP Pulse Ox 97.7 F 64 16 94/59 100 10/23/16 08:05 10/23/16 09:52 10/23/16 08:05 10/23/16 08:05 10/23/16 09:52 General appearance: Present: cooperative, A&O X 3, pleasant, no acute distress, obese, answers questions appropriately Exam: HEENT: Atraumatic, Normocephaly, Mucus Membranes Moist Neck: No JVD, Normal carotid pulses Cardiac: Normal S1 and S2, Other (Irregularly, irregular. Systolic murmur noted. ) Lungs: Normal Breath Sounds, No Wheeze, Rales, Rhonchi Neuro: Alert and responsive, No focal deficits noted Abdomen: Soft, Non-Tender Skin: No rashes noted on visualized skin Musculoskeletal: No Chest Wall Tenderness Extremities: No Clubbing, No Cyanosis, Normal Pulses, Other (2+ pitting edema to left lower extremity. 1+ pitting edema to right lower extremity. ) - VTE Documentation of Mechanical Device: Graduated compression elastic hosiery
[2016-10-23] MEDS ORDERED: *HR* Warfarin 2.5 MG TABLET PO ONE (18:00)
== END 2016-10-23 11:26 | disposition home or self-care (01) | DRG 291 ==
LOC: EMEROO 10:19 → 2NNU 10:19
PROVIDERS: ADMIT Internal Medicine; ATTEND Internal Medicine

== ENCOUNTER 2020-11-08 09:55 | Inpatient (IN) ==
[2020-11-08 10:46] LABS: Hematocrit 27.7 % (37.5-50.1); Hemoglobin 8.8 g/dL (12.9-16.9); Mean Corpuscular HGB Conc 31.8 g/dL (31.6-35.5); Mean Corpuscular Volume 100.7 fL (83.0-100.0); Mean Platelet Volume 9.5 fL (9.4-12.4); Platelet Count 301 K/mcL (140-400); Red Blood Count 2.75 M/mcL (4.19-5.50); Red Cell Distribution Width 13.7 % (11.5-14.5); White Blood Count 7.8 K/mcL (4.3-11.1)
[2020-11-08 11:05] LABS: Magnesium 1.7 mg/dL (1.6-2.6); Phosphorous 2.6 mg/dL (2.7-4.5)
[2020-11-08 11:06] LABS: BUN/Creatinine Ratio 28 (6-26); Blood Urea Nitrogen 33 mg/dL (8-23); Calcium 11.7 mg/dL (8.6-10.3); Carbon Dioxide 27 mEq/L (23-29); Chloride 101 mEq/L (98-107); Glucose 85 mg/dL (70-105); Osmolality,Calculated 289 (280-300); Potassium 4.4 mEq/L (3.5-5.1); Sodium 136 mEq/L (136-145); eGFR For African Americans > 60 (> 60); eGFR For Non-African Americans 60 (> 60)
[2020-11-08] MEDS ORDERED: Naloxone 0.4 MG/ML INJ IVP PRN (11:57)
[2020-11-08] MEDS ORDERED: 0.9 % Sodium Chloride 1,000 ML IVC SCH ×2 (12:15→13:45)
[2020-11-08 18:42] LABS: Hemoglobin 9.1 g/dL (12.9-16.9)
[2020-11-08] MEDS ORDERED: *HR* Propofol 200 MG/20 ML VIAL IVP ONE (23:35)
[2020-11-08] MEDS ORDERED: *HR* FentaNYL (PF) 100 MCG/2 ML VIAL ONE (23:35)
[2020-11-08] MEDS ORDERED: Lidocaine -MPF 2% 2 ML VIAL ONE (23:36)
[2020-11-08] MEDS ORDERED: *HR* Succinylcholine 200 MG/10 ML VIAL IVP ONE (23:36)
[2020-11-08] MEDS ORDERED: Ondansetron 4 MG/2 ML VIAL ONE (23:36)
[2020-11-08] MEDS ORDERED: *HR* Rocuronium Bromide 50 MG/5 ML VIAL ONE (23:36)
[2020-11-08] MEDS ORDERED: Lidocaine HCL 4 ML Topical Solution (Laryng-O-Jet Kit Sterile Pak) TP ONE (23:37)
[2020-11-08] MEDS ORDERED: Famotidine 20 MG/2 ML VIAL ONE (23:41)
[2020-11-08] MEDS ORDERED: *HR* Norepinephrine 4 MG/4 ML VIAL IVC ONE (23:41)
[2020-11-08] MEDS ORDERED: Famotidine 20 MG/2 ML VIAL IVP ONE (23:49)
[2020-11-09] MEDS ORDERED: Sugammadex Sodium 200 MG/2 ML VIAL IV ONE (00:56)
[2020-11-09] MEDS ORDERED: *HR* HYDROmorphone 2 MG/ML SYRINGE IVP ONE (01:26)
[2020-11-09] MEDS ORDERED: *HR* HYDROmorphone (PF) 1 MG/ML SYRINGE ONE (01:28)
[2020-11-09] MEDS ORDERED: Naloxone 0.4 MG/ML INJ IVP PRN (02:09)
[2020-11-09] MEDS ORDERED: 0.9 % Sodium Chloride 1,000 ML IVC SCH ×2 (02:09)
[2020-11-09 03:33] LABS: BUN/Creatinine Ratio 26 (6-26); Blood Urea Nitrogen 28 mg/dL (8-23); Calcium 10.7 mg/dL (8.6-10.3); Carbon Dioxide 27 mEq/L (23-29); Chloride 101 mEq/L (98-107); Glucose 90 mg/dL (70-105); Osmolality,Calculated 293 (280-300); Potassium 4.6 mEq/L (3.5-5.1); Sodium 139 mEq/L (136-145); eGFR For African Americans > 60 (> 60); eGFR For Non-African Americans > 60 (> 60)
[2020-11-09] MEDS: Famotidine 20 MG/2 ML VIAL IVP SCH ×2 (04:47→18:58)
[2020-11-09] MEDS ORDERED: Roflumilast [Daliresp] 500 MCG Tablet PO SCH (09:00)
[2020-11-09] MEDS ORDERED: Metoprolol XL (24 HR) Succ 25 MG TAB.ER.24H PO SCH (09:00)
[2020-11-09] MEDS ORDERED: *HR* Amiodarone 200 MG TABLET PO SCH (09:00)
[2020-11-09] MEDS ORDERED: DilTIAZem CD (24hr) 120 MG CAP.ER.24H PO SCH (09:00)
[2020-11-09] MEDS: DilTIAZem CD (24hr) 120 MG CAP.ER.24H PO SCH (09:40)
[2020-11-09] MEDS: *HR* Amiodarone 200 MG TABLET PO SCH (09:41)
[2020-11-09] MEDS: Metoprolol XL (24 HR) Succ 25 MG TAB.ER.24H PO SCH (09:41)
[2020-11-09] MEDS: Roflumilast [Daliresp] 500 MCG PO SCH (09:41)
[2020-11-09 10:15] LABS: Hematocrit 28.5 % (37.5-50.1); Hemoglobin 9.1 g/dL (12.9-16.9)
[2020-11-09] MEDS: Bumetanide 1 MG TABLET PO SCH (12:00)
[2020-11-10] MEDS: Famotidine 20 MG/2 ML VIAL IVP SCH ×2 (05:40→15:35)
[2020-11-10] MEDS: Bumetanide 1 MG TABLET PO SCH (11:02)
[2020-11-10] MEDS: *HR* Amiodarone 200 MG TABLET PO SCH (11:02)
[2020-11-10] MEDS: Metoprolol XL (24 HR) Succ 25 MG TAB.ER.24H PO SCH (11:03)
[2020-11-10] MEDS: DilTIAZem CD (24hr) 120 MG CAP.ER.24H PO SCH (11:03)
[2020-11-10] MEDS: Roflumilast [Daliresp] 500 MCG PO SCH (11:43)
[2020-11-10 12:17] LABS: BUN/Creatinine Ratio 27 (6-26); Blood Urea Nitrogen 27 mg/dL (8-23); Calcium 10.9 mg/dL (8.6-10.3); Carbon Dioxide 26 mEq/L (23-29); Chloride 102 mEq/L (98-107); Glucose 137 mg/dL (70-105); Magnesium 1.8 mg/dL (1.6-2.6); Osmolality,Calculated 289 (280-300); Potassium 4.3 mEq/L (3.5-5.1); Sodium 136 mEq/L (136-145); eGFR For African Americans > 60 (> 60); eGFR For Non-African Americans > 60 (> 60)
[2020-11-11] MEDS: Famotidine 20 MG/2 ML VIAL IVP SCH ×2 (05:58→17:15)
[2020-11-11] MEDS: Bumetanide 1 MG TABLET PO SCH (07:53)
[2020-11-11] MEDS: Metoprolol XL (24 HR) Succ 25 MG TAB.ER.24H PO SCH (07:54)
[2020-11-11] MEDS: *HR* Amiodarone 200 MG TABLET PO SCH (07:55)
[2020-11-11] MEDS: DilTIAZem CD (24hr) 120 MG CAP.ER.24H PO SCH (07:55)
[2020-11-11 08:43] LABS: Hematocrit 32.5 % (37.5-50.1)
[2020-11-11 09:07] LABS: Hemoglobin 10.7 g/dL (12.9-16.9)
[2020-11-11] MEDS ORDERED: Furosemide 20 MG/2 ML VIAL IVP ONE (09:09)
[2020-11-11] MEDS: Ipratropium/Albuterol Neb 3 ML IH SCH ×5 (09:40→23:44)
[2020-11-11] MEDS ORDERED: cefTRIAXone 1,000 MG in Water for inj. (sterile) 10 ML IVP SCH (10:00)
[2020-11-11] MEDS ORDERED: Azithromycin 500 MG in 0.9 % Sodium Chloride 250 ML IVPB SCH (10:00)
[2020-11-11] MEDS: Roflumilast [Daliresp] 500 MCG PO SCH (10:42)
[2020-11-11] MEDS ORDERED: polyethylene glycoL 3350 17 GM POWD.PACK PO SCH (11:00)
[2020-11-11 13:25] LABS: ABG Base Excess -8 mEq/L (-2 to 3); ABG HCO3 18 mEq/L (21-27); ABG Oxygen Saturation 96 % (95-98); ABG PCO2 37 mmHg (35-45); ABG PH 7.29 pH Units (7.32-7.45); ABG PO2 89 mmHg (85-104); ABG TCO2 19 mEq/L (20-26)
[2020-11-11] MEDS ORDERED: Piperacillin/Tazobactam 3.375 GM in 0.9 % Sodium Chloride Mini Bag 100 ML IVPB SCH (15:00)
[2020-11-11] MEDS ORDERED: Haloperidol Lactate 5 MG/ML VIAL IM ONE ×2 (16:22→22:12)
[2020-11-11] MEDS ORDERED: Furosemide 20 MG/2 ML VIAL IVP SCH (17:00)
[2020-11-11 18:06] LABS: ABG Base Excess -5 mEq/L (-2 to 3); ABG HCO3 19 mEq/L (21-27); ABG Oxygen Saturation 98 % (95-98); ABG PCO2 34 mmHg (35-45); ABG PH 7.37 pH Units (7.32-7.45); ABG PO2 97 mmHg (85-104); ABG TCO2 21 mEq/L (20-26)
[2020-11-11 19:31] LABS: Calcium 13.2 mg/dL (8.6-10.3); Potassium 5.4 mEq/L (3.5-5.1)
[2020-11-11 20:37] LABS: ABG Base Excess -6 mEq/L (-2 to 3); ABG HCO3 19 mEq/L (21-27); ABG Oxygen Saturation 94 % (95-98); ABG PCO2 34 mmHg (35-45); ABG PH 7.35 pH Units (7.32-7.45); ABG PO2 73 mmHg (85-104); ABG TCO2 20 mEq/L (20-26)
[2020-11-11] MEDS ORDERED: Albumin 25% 25gram/100mL 25 GM/100 ML IV.SOLN IVPB ONE (23:24)
[2020-11-11 23:46] VITALS: PULSE 54; TEMP 98.4
[2020-11-11 23:47] VITALS: BP 82/26; O2SAT 93
[2020-11-12] MEDS ORDERED: 0.9 % Sodium Chloride 1,000 ML ONE (00:16)
[2020-11-12] MEDS ORDERED: Furosemide 20 MG/2 ML VIAL IVP SCH (09:00)
== END 2020-11-12 01:50 | disposition expired | DRG 375 ==
LOC: 3BNU 09:55 → EMEROOARM 09:55 → SUATTDRO 12:25 → 3BNU 12:59 → 2NENU 11-11 14:59
PROVIDERS: ADMIT Internal Medicine; ATTEND Internal Medicine